=== PATIENT | male | born 1970 | race Hispanic/Latino ===

== ENCOUNTER 2018-09-22 21:57 | Emergency (ER) | payer BC, OTHER, SELFPAY ==
--- OUTSIDE RECORDS SUMMARY | 2018-09-22 22:00 | XMS REPORT | Continuity of Care Document ---
:1970 Author Organization Interface Problems Problem Status Onset Classification Date Comments Source Date Reported HEARING LOSS Active 09/26/[address] Dizziness and 08/22/19 11/24/2017 [facility] giddiness 18 [facility] VESTIBULAR Active 03/30/[address] HEAR LOSS Active 12/31/[address] Muscle weakness 11/24/2017 Other 11/24/2017 [facility] abnormalities of [facility] gait and mobility [facility] [place] HTN (<span Active Problem 11/24/2017 [facility] ID="[id number]" Medical >Confirmed</span> [place], ) [facility] Sensorineural Active Problem 11/24/2017 [facility] hearing loss [facility], Medications Medication Details Route Status Patient Ordering Order Source Instructions Provider Date sugammadex 500 mg, 5 mL, Inactive [facility] Route: IV, Drug 2017 Medical form: Renu AGUIRRE ONCE, Start date: 10/19/17 14:20:00 CDT, Stop date: 10/19/17 14:20:00 CDTNotes: (Same as: Bridion) Oxycodone 5 mg, 1 tab, No Longer [facility] Route: PO, Drug Active 2017 Medical form: TAB, Q4H, [place] Dosing Weight 84.091, kg, PRN Pain Score 4-6, Start date: 10/19/17 10:38:00 CDT, Duration: 30 day, Stop date: 11/18/17 10:37:00 CDTNotes: (Same as: Roxicodone) Ondansetron 4 mg, Route: Inactive [facility] IVP, ONCE, 2018 Medical Dosing Weight Center 84.091, kg, PRN Nausea & Vomiting, Start date: 10/19/17 10:38:00 CDT Hydromorphone 0.5 mg, Route: Inactive [facility] IVP, Q5Min, 2018 Medical Dosing Weight Center 84.091, kg, PRN Pain Score 7-10, Start date: 10/19/17 10:38:00 CDT, Duration: 4 doses or times, Stop date: Limited # of times Hydralazine 10 mg, 0.5 mL, No Longer [facility] Route: IVP, Active 2017 Medical Drug form: INJ, Center Q20Min, Dosing Weight 84.091, kg, PRN Elevated BP, Start date: 10/19/17 10:38:00 CDT, Duration: 2 doses or times, Stop date: 10/20/17 0:00:00 CDTNotes: (Same as: Apresoline) Push over 5 minutes Labetalol 10 mg, 2 mL, No Longer [facility] Route: IVP, Active 2017 Medical Drug form: INJ, Center Q5Min, Dosing Weight 84.091, kg, PRN Elevated BP, Start date: 10/19/17 10:38:00 CDT, Duration: 5 doses or times, Stop date: 10/20/17 0:00:00 CDT Promethazine 6.25 mg, 0.25 No Longer [facility] mL, Route: Active 2017 Medical IVPB, Drug Center form: INJ, ONCE, Dosing Weight 84.091, kg, PRN Nausea & Vomiting, Start date: 10/19/17 10:38:00 CDTNotes: Do not give IV push. (Same as: Phenergan) Flumazenil 0.2 mg, 2 mL, No Longer [facility] Route: IVP, Active 2017 Medical Drug form: INJ, Center PRN, Dosing Weight 84.091, kg, PRN Benzodiazepine Reversal, Initial dose, Start date: 10/19/17 10:38:00 CDT, Duration: 30 day, Stop date: 11/18/17 10:37:00 CDTNotes: (Same as: Romazicon) Naloxone 0.4 mg, 1 mL, No Longer [facility] Route: IVP, Active 2017 Medical Drug form: INJ, Center Q2MIN, Dosing Weight 84.091, kg, PRN Narcotic Reversal, Start date: 10/19/17 10:38:00 CDT, Duration: 8 doses or times, Stop date: 10/20/17 0:00:00 CDTNotes: Same as Narcan sugammadex (ANES) Route: IV, Drug Inactive [facility] form: SOLN, 2017 Medical ONCE, Stop Center date: 10/19/17 10:12:00 CDT phenylephrine Route: IV, Drug Inactive [facility] (ANES) form: INJ, 2017 Medical ONCE, Stop Center date: 10/19/17 8:36:00 CDT dexamethasone Route: IV, Drug Inactive [facility] (ANES) form: INJ, 2017 Medical ONCE, Stop Center date: 10/19/17 8:36:00 CDT ondansetron (ANES) Route: IV, Drug Inactive [facility] form: INJ, 2017 Medical ONCE, Stop Center date: 10/19/17 8:36:00 CDT fentaNYL (ANES) Route: IV, Drug Inactive [facility] form: INJ, 2017 Medical ONCE, Stop Center date: 10/19/17 8:21:00 CDT rocuronium (ANES) Route: IV, Drug Inactive [facility] form: INJ, 2017 Medical ONCE, Stop Center date: 10/19/17 8:21:00 CDT propofol (ANES) Route: IV, Drug Inactive [facility] form: INJ, 2017 Medical ONCE, Stop Center date: 10/19/17 8:21:00 CDT midazolam (ANES) Route: IV, Drug Inactive [facility] form: SOLN2017 Medical ONCE, Stop Center date: 10/19/17 8:21:00 CDT acetaminophen Route: IV, Drug Inactive [facility] (ANES) form: INJ, 2017 Medical ONCE, Stop Center date: 10/19/17 8:21:00 CDT Lactated Ringers Route: IV, Inactive [facility] Injection IV (ANES) Total Volume: 2017 Medical 1000 mL 1,000, Start Center date: 10/19/17 7:26:00 CDT, Stop date: 10/19/17 8:26:00 CDT Fenofibrate 54 MG 54 mg=1 tab, Active [facility] Oral Tablet PO, Daily, 0 2017 Medical Refill(s) Center Trazodone 50 mg=1 tab, Active [place] Hydrochloride 50 MG PO, TID, 0 2017 [facility] Oral Tablet Refill(s) Center Ketorolac 15 mg, Route: Inactive [facility] IV, ONCE, 2016 Medical Dosing Weight Center 86.818, kg, Start date: 03/30/17 11:26:00 CDT, Stop date: 03/30/17 11:26:00 CDT ondansetron (ANES) Route: IV, Drug Inactive [facility] form: INJ, 2016 Medical ONCE, Stop Center date: 03/30/17 9:50:00 CDT fentaNYL (ANES) Route: IV, Drug Inactive [facility] form: INJ, 2016 Medical ONCE, Stop Center date: 03/30/17 8:55:00 CDT succinylcholine Route: IV, Drug Inactive [facility] (ANES) form: INJ, 2016 Medical ONCE, Stop Center date: 03/30/17 8:55:00 CDT propofol (ANES) Route: IV, Drug Inactive [facility] form: INJ, 2016 Medical ONCE, Stop Center date: 03/30/17 8:55:00 CDT lidocaine (ANES) Route: IV, Drug Inactive [facility] form: INJ, 2016 Medical ONCE, Stop Center date: 03/30/17 8:55:00 CDT dexamethasone Route: IV, Drug Inactive [facility] (ANES) form: INJ, 2016 Medical ONCE, Stop Center date: 03/30/17 8:50:00 CDT ceFAZolin (ANES) Route: IV, Drug Inactive [facility] form: INJ, 2016 Medical ONCE, Stop Center date: 03/30/17 8:45:00 CDT Naloxone 0.4 mg, 1 mL, No Longer [place] Route: IVP, Active 2016 Medical Drug form: INJ, Center Q2MIN, Dosing Weight 86.818, kg, PRN Narcotic Reversal, Start date: 03/30/17 8:39:00 CDT, Duration: 8 doses or times, Stop date: Limited # of timesNotes: Same as Narcan Flumazenil 0.2 mg, 2 mL, No Longer [facility] Route: IVP, Active 2016 Medical Drug form: INJ, Center PRN, Dosing Weight 86.818, kg, PRN Benzodiazepine Reversal, Initial dose, Start date: 03/30/17 8:39:00 CDT, Duration: 1 day, Stop date: 03/31/17 8:38:00 CDTNotes: (Same as: Romazicon) Hydromorphone 0.5 mg, Route: Inactive [facility] IVP, Q5Min, 2016 Medical Dosing Weight Center 86.818, kg, PRN Pain Score 7-10, Start date: 03/30/17 8:39:00 CDT, Duration: 4 doses or times, Stop date: Limited # of times Ondansetron 4 mg, Route: Inactive [facility] IVP, ONCE, 2016 Medical Dosing Weight Center 86.818, kg, PRN Nausea & Vomiting, Start date: 03/30/17 8:39:00 CDT Promethazine 6.25 mg, 0.25 No Longer [facility] mL, Route: Active 2016 Medical IVPB, Drug Center form: INJ, ONCE, Dosing Weight 86.818, kg, PRN Nausea & Vomiting, Start date: 03/30/17 8:39:00 CDTNotes: Do not give IV push. (Same as: Phenergan) Oxycodone 5 mg, 1 tab, No Longer [facility] Route: PO, Drug Active 2016 Medical form: TAB, Q4H, Center Dosing Weight 86.818, kg, PRN Pain Score 4-6, Start date: 03/30/17 8:39:00 CDT, Duration: 30 day, Stop date: 04/29/17 8:38:00 CDTNotes: (Same as: Roxicodone) midazolam (ANES) Route: IV, Drug Inactive [facility] form: TIMOTHY 2016 Medical ONCE, Stop Center date: 03/30/17 8:15:00 CDT Drug Only (ANES) + Route: IV, Drug Inactive [facility] dexmedetomidine form: TIMOTHY 2016 Medical (ANES) (ANES) Start date: Center 03/30/17 8:05:00 CDT, Stop date: 03/30/17 9:05:00 CDT Drug Only (ANES) + Route: IV, Drug Inactive [facility] SUFentanil (ANES) form: SOLN, 2017 Medical (ANES) Start date: Center 03/30/17 8:05:00 CDT, Stop date: 03/30/17 9:05:00 CDT propofol (ANES) Route: IV, Drug Inactive [facility] (ANES) form: INJ, 2017 Medical Start date: Center 03/30/17 8:05:00 CDT, Stop date: 03/30/17 9:05:00 CDT LR 1000 mL INJ Route: IV, Inactive [facility] (ANES) Total Volume: 2017 Medical 1,000, Start Center date: 03/30/17 7:38:00 CDT, Stop date: 03/30/17 8:38:00 CDT ceFAZolin 2 gm, 100 mL, No Longer [place] Route: IVPB, Active 2016 Medical Drug form: INJ, Center PRE OP, Start date: 03/29/17 23:00:00 CDT, Duration: 1 day, Stop date: 03/30/17 22:59:00 CDT, ABX Indication: Surgical ProphylaxisNote s: Same as: Ancef promethazine 50 mg 50 mg=1 tab, Active [place] oral tablet PO, Q6H, PRN 2017 Medical Nausea & Center Vomiting, # 40 tab, 0 Refill(s) Hydrochlorothiazide 1 tab, PO, Active [facility] 25 MG / Losartan Daily, # 30 2017 Medical Potassium 100 MG tab, 0 Center Oral Tablet Refill(s) Promethazine DM 5 mL, PO, Q6H, Active [facility] oral syrup PRN for cough, 2017 Medical # 120 mL, 0 Center Refill(s) metoprolol tartrate 25 mg=1 tab, Active [facility] 25 mg oral tablet PO, BID, # 180 2017 Medical tab, 0 Center Refill(s) Allergies, Adverse Reactions, Alerts Substance Category Reaction Severity Reaction Status Date Comments Source type Reported Immunizations Immunization Date Given Site Status Last Updated Comments Source Results Order Name Results Value Reference Date Interpretation Comments Source Range CHEM PANEL eGFR 60 10/16/ Result Comment: The eGFR is calculated using the CKD-EPI formula. In most young, healthy individuals the eGFR will be >90 mL/ min/1.73m2. The eGFR declines with age. An eGFR of 60-89 may be normal in [facility] /min2017 some populations, particularly the elderly, for whom the CKD-EPI formula has not been extensively validated. Use of the eGFR is not recommended in the following populations: [facility] 1.73m2 [place] Individuals with unstable creatinine concentrations, including patients and those with serious co-morbid conditions. Patients with extremes in muscle mass or diet. The data above are obtained from the National Kidney Disease Education Program (NKDEP) which additionally recommends that when the eGFR is used in patients with extremes of body mass index for purposes of drug dosing, the eGFR should be multiplied by the estimated BMI. CHEM PANEL AGAP 13.2 10.0 - 20.0 [place] meq/L 2017 [facility] CHEM PANEL CO2 28 24 - 32 [place] meq/L 2017 [facility] CHEM PANEL Calcium Lvl 9.0 8.5 - 10.5 [place] mg/dL 2017 [facility] CHEM PANEL Chloride Lvl 105 95 - 109 [place] meq/L 2017 [facility] CHEM PANEL Potassium 4.2 3.5 - 5.1 [facility] Lvl meq/L 2017 [facility] CHEM PANEL Sodium Lvl 142 135 - 145 [place] meq/L 2017 [facility] CHEM PANEL Creatinine 1.38 0.50 - 1.40 [place] Lvl mg/dL [address] [place] [address] CHEM PANEL Glucose Lvl 83 70 - 99 [place] mg/dL 2017 [facility] CHEM PANEL BUN 30 7 - 22 [place] mg/dL [address] [place] [address] CHEM PANEL eGFR 49 03/26/ Result Comment: The eGFR is calculated using the CKD-EPI formula. In most young, healthy individuals the eGFR will be >90 mL/ min/1.73m2. The eGFR declines with age. An eGFR of 60-89 may be normal in [facility] /min2016 some populations, particularly the elderly, for whom the CKD-EPI formula has not been extensively validated. Use of the eGFR is not recommended in the following populations: [facility] 1.73m2 [place] Individuals with unstable creatinine concentrations, including patients and those with serious co-morbid conditions. Patients with extremes in muscle mass or diet. The data above are obtained from the National Kidney Disease Education Program (NKDEP) which additionally recommends that when the eGFR is used in patients with extremes of body mass index for purposes of drug dosing, the eGFR should be multiplied by the estimated BMI. CHEM PANEL Potassium 4.2 3.5 - 5.1 [place] Lvl meq/L [address] [place] [address] CHEM PANEL Calcium Lvl 9.3 8.5 - 10.5 [place] mg/dL [address] [place] [address] CHEM PANEL CO2 30 24 - 32 [place] meq/L [address] [place] [address] CHEM PANEL Chloride Lvl 103 95 - 109 [place] meq/L [address] [place] [address] CHEM PANEL BUN 37 7 - 22 [place] mg/dL [address] [place] [address] CHEM PANEL Sodium Lvl 140 135 - 145 [place] meq/L [address] [place] [address] CHEM PANEL Glucose Lvl 78 70 - 99 [place] mg/dL [address] [place] [address] CHEM PANEL Creatinine 1.63 0.50 - 1.40 [place] Lvl mg/dL [address] [place] [address] CHEM PANEL AGAP 11.2 10.0 - 20.0 [place] meq/L [address] [place] [address] SPECIAL Hgb A1C 5.8 % <=5.6 % [facility] CHEMISTRY [address] [place] [address] Vital Signs Vital Sign Value Date Comments Source Respitory Rate 12 10/19/2017 [facility] [place] Systolic (mm Hg) 104 10/19/2017 [facility] [place] Diastolic (mm Hg) 69 10/19/2017 [facility] [place] Respitory Rate 12 10/19/2017 [facility] [place] Systolic (mm Hg) 101 10/19/2017 [facility] [place] Diastolic (mm Hg) 59 10/19/2017 [facility] [place] Systolic (mm Hg) 114 10/19/2017 [facility] [place] Diastolic (mm Hg) 59 10/19/2017 [facility] [place] Respitory Rate 11 10/19/2017 [facility] [place] Heart Rate 63 10/19/2017 [facility] [place] Height 175.26 cm 10/19/2017 [facility] [place] BMI Calculated 27.38 10/19/2017 [facility] [place] Weight 84.091 10/19/2017 [facility] [place] Height 175.26 cm 10/16/2017 [facility] [place] BMI Calculated 27.38 10/16/2017 [facility] [place] Weight 84.091 10/16/2017 [facility] [place] Respitory Rate 16 03/30/2017 [facility] [place] Heart Rate 63 03/30/2017 [facility] [place] Systolic (mm Hg) 107 03/30/2017 [facility] [place] Diastolic (mm Hg) 62 03/30/2017 [facility] [place] Respitory Rate 12 03/30/2017 [facility] [place] Systolic (mm Hg) 97 03/30/2017 [facility] [place] Diastolic (mm Hg) 54 03/30/2017 [facility] [place] Systolic (mm Hg) 101 03/30/2017 [facility] [place] Diastolic (mm Hg) 58 03/30/2017 [facility] [place] Respitory Rate 13 03/30/2017 [facility] [place] Heart Rate 69 03/30/2017 [facility] [place] BMI Calculated 28.26 03/30/2017 [facility] [place] Weight 86.818 03/30/2017 [facility] [place] Height 175.26 cm 03/30/2017 [facility] [place] Weight 86.364 03/26/2017 [facility] [place] Height 175.26 cm 03/26/2017 [facility] [place] BMI Calculated 28.12 03/26/2017 [facility] [place] Encounters Location Location Encounter Encounter Reason Attending ADM DC Status Source Details Type Number For Provider Date Date Visit [id number] Fatou-Yeанна 03/30 03/31 [facility] OP Therapy [id number] Fatou-Yen 07/20 08/19 [facility] [id number] Fatou-Yen 10/19 10/20 [facility] Procedures Procedure Code Date Perfomer Comments Source Implantation [id number] [facility] Implantation [id number] [facility] [place]
--- OUTSIDE RECORDS SUMMARY | 2018-09-22 22:01 | XMS REPORT | Summary of Care ---
:1970 Author Organization [facility] Address [address], [place] [address]- Encounter HQ Lonantr_elsy(FIN) [id number] Date(s): 03/30/17 - 03/30/[address] [address]- [place] Discharge Disposition: Home or Self Care Attending Physician: Lionel Madden MD Referring Physician: Lionel Madden MD Vital Signs Most recent to oldest 1 2 3 [Reference Range]: Height 175.26 cm 175.26 cm (03/30/17 5:54 AM) (03/26/17 2:15 PM) Blood Pressure [90-140/60-90 107/62 mmHg 97/54 mmHg 101/58 mmHg mmHg] (03/30/17 12:00 PM) (03/30/17 11:30 AM) (03/30/17 11:15 AM) Respiratory Rate [14-20 16 BRMIN 12 BRMIN 13 BRMIN BRMIN] (03/30/17 12:00 PM) *LOW* *LOW* (03/30/17 11:30 AM) (03/30/17 11:15 AM) Peripheral Pulse Rate 63 bpm 69 bpm [60-100 bpm] (03/30/17 12:00 PM) (03/30/17 5:54 AM) Weight 86.818 kg 86.364 kg (03/30/17 5:54 AM) (03/26/17 2:15 PM) Body Mass Index 28.26 m2 28.12 m2 (03/30/17 5:54 AM) (03/26/17 2:15 PM) Problem List Condition Effective Dates Status Health Status Informant HTN (hypertension)(Confirmed) Active Sensorineural hearing loss(Confirmed) Active Allergies, Adverse Reactions, Alerts Substance Reaction Severity Status NKDA Active Medications ANES flumazenil 0.2 mg, 2 mL, Route: IVP, Drug form: INJ, PRN, Dosing Weight 86.818, kg, PRN Benzodiazepine Reversal, Initial dose, Start date: 03/30/17 8:39:00 CDT, Duration: 1 day, Stop date: 03/31/17 8:38:00 CDT Notes: (Same as: Romazicon) Start Date: 03/30/17 Stop Date: 03/31/17 Status: DiscontinuedANES HYDROmorphone 0.5 mg, Route: IVP, Q5Min, Dosing Weight 86.818, kg, PRN Pain Score 7-10, Start date: 03/30/17 8:39:00 CDT, Duration: 4 doses or times, Stop date: Limited # of times Start Date: 03/30/17 Stop Date: 03/30/17 Status: CompletedANES naloxone 0.4 mg, 1 mL, Route: IVP, Drug form: INJ, Q2MIN, Dosing Weight 86.818, kg, PRN Narcotic Reversal, Start date: 03/30/17 8:39:00 CDT, Duration: 8 doses or times , Stop date: Limited # of times Notes: Same as Narcan Start Date: 03/30/17 Stop Date: 03/31/17 Status: DiscontinuedANES ondansetron 4 mg, Route: IVP, ONCE, Dosing Weight 86.818, kg, PRN Nausea & Vomiting, Start date: 03/30/17 8:39:00 CDT Start Date: 03/30/17 Stop Date: 03/30/17 Status: CompletedANES oxyCODONE 5 mg, 1 tab, Route: PO, Drug form: TAB, Q4H, Dosing Weight 86.818, kg, PRN Pain Score 4-6, Start date: 03/30/17 8:39:00 CDT, Duration: 30 day, Stop date: 8:38:00 CDT Notes: (Same as: Roxicodone) Start Date: 03/30/17 Stop Date: 03/31/17 Status: DiscontinuedANES promethazine 6.25 mg, 0.25 mL, Route: IVPB, Drug form: INJ, ONCE, Dosing Weight 86.818, kg, PRN Nausea & Vomiting, Start date: 03/30/17 8:39:00 CDT Notes: Do not give IV push. (Same as: Phenergan) Start Date: 03/30/17 Stop Date: 03/31/17 Status: DiscontinuedceFAZolin 2 gm, 100 mL, Route: IVPB, Drug form: INJ, PRE OP, Start date: 03/29/17 23:00: 00 CDT, Duration: 1 day, Stop date: 03/30/17 22:59:00 CDT, ABX Indication: Surgical Prophylaxis Notes: Same as: Ancef Start Date: 03/29/17 Stop Date: 03/31/17 Status: DiscontinuedceFAZolin (ANES) Route: IV, Drug form: INJ, ONCE, Stop date: 03/30/17 8:45:00 CDT Start Date: 03/30/17 Stop Date: 03/30/17 Status: Completeddexamethasone (ANES) Route: IV, Drug form: INJ, ONCE, Stop date: 03/30/17 8:50:00 CDT Start Date: 03/30/17 Stop Date: 03/30/17 Status: CompletedDrug Only (ANES) + dexmedetomidine (ANES) (ANES) Route: IV, Drug form: SOLN, Start date: 03/30/17 8:05:00 CDT, Stop date: 9:05:00 CDT Start Date: 03/30/17 Stop Date: 03/30/17 Status: CompletedDrug Only (ANES) + SUFentanil (ANES) (ANES) Route: IV, Drug form: SOLN, Start date: 03/30/17 8:05:00 CDT, Stop date: 9:05:00 CDT Start Date: 03/30/17 Stop Date: 03/30/17 Status: CompletedfentaNYL (ANES) Route: IV, Drug form: INJ, ONCE, Stop date: 03/30/17 8:55:00 CDT Start Date: 03/30/17 Stop Date: 03/30/17 Status: Completedhydrochlorothiazide-losartan 25 mg-100 mg oral tablet 1 tab, PO, Daily, # 30 tab, 0 Refill(s) Start Date: 03/23/17 Status: OrderedketOROLAC 15 mg, Route: IV, ONCE, Dosing Weight 86.818, kg, Start date: 03/30/17 11:26:00 CDT, Stop date: 03/30/17 11:26:00 CDT Start Date: 03/30/17 Stop Date: 03/30/17 Status: Orderedlidocaine (ANES) Route: IV, Drug form: INJ, ONCE, Stop date: 03/30/17 8:55:00 CDT Start Date: 03/30/17 Stop Date: 03/30/17 Status: CompletedLR 1000 mL INJ (ANES) Route: IV, Total Volume: 1,000, Start date: 03/30/17 7:38:00 CDT, Stop date: 8:38:00 CDT Start Date: 03/30/17 Stop Date: 03/30/17 Status: Completedmetoprolol tartrate 25 mg oral tablet 25 mg=1 tab, PO, BID, # 180 tab, 0 Refill(s) Start Date: 03/23/17 Status: Orderedmidazolam (ANES) Route: IV, Drug form: SOLN, ONCE, Stop date: 03/30/17 8:15:00 CDT Start Date: 03/30/17 Stop Date: 03/30/17 Status: Completedondansetron (ANES) Route: IV, Drug form: INJ, ONCE, Stop date: 03/30/17 9:50:00 CDT Start Date: 03/30/17 Stop Date: 03/30/17 Status: Completedpromethazine 50 mg oral tablet 50 mg=1 tab, PO, Q6H, PRN Nausea & Vomiting, # 40 tab, 0 Refill(s) Start Date: 03/26/17 Stop Date: 04/05/17 Status: OrderedPromethazine DM oral syrup 5 mL, PO, Q6H, PRN for cough, # 120 mL, 0 Refill(s) Start Date: 03/23/17 Stop Date: 03/29/17 Status: Orderedpropofol (ANES) Route: IV, Drug form: INJ, ONCE, Stop date: 03/30/17 8:55:00 CDT Start Date: 03/30/17 Stop Date: 03/30/17 Status: Completedpropofol (ANES) (ANES) Route: IV, Drug form: INJ, Start date: 03/30/17 8:05:00 CDT, Stop date: 9:05:00 CDT Start Date: 03/30/17 Stop Date: 03/30/17 Status: Completedsuccinylcholine (ANES) Route: IV, Drug form: INJ, ONCE, Stop date: 03/30/17 8:55:00 CDT Start Date: 03/30/17 Stop Date: 03/30/17 Status: Completed Results ELECTROLYTES Most recent to oldest [Reference Range]: 1 Sodium Lvl [135-145 mEq/L] 140 mEq/L (03/26/17 12:35 PM) Potassium Lvl [3.5-5.1 mEq/L] 4.2 mEq/L (03/26/17 12:35 PM) Chloride Lvl [95-109 mEq/L] 103 mEq/L (03/26/17 12:35 PM) CO2 [24-32 mEq/L] 30 mEq/L (03/26/17 12:35 PM) AGAP [10.0-20.0 mEq/L] 11.2 mEq/L (03/26/17 12:35 PM) CHEM PANEL Most recent to oldest [Reference Range]: 1 Creatinine Lvl [0.50-1.40 mg/dL] 1.63 mg/dL *HI* (03/26/17 12:35 PM) eGFR 49 mL/min/1.73m2 1 *NA* (03/26/17 12:35 PM) BUN [7-22 mg/dL] 37 mg/dL *HI* (03/26/17 12:35 PM) Glucose Lvl [70-99 mg/dL] 78 mg/dL (03/26/17 12:35 PM) Calcium Lvl [8.5-10.5 mg/dL] 9.3 mg/dL (03/26/17 12:35 PM) 1Result Comment: The eGFR is calculated using the CKD-EPI formula. In most young , healthy individualsthe eGFR will be >90 mL/min/1.73m2. The eGFR declines with age. An eGFR of 60-89 may be normal in some populations, particularly the elderly, for whom the CKD-EPI formula has not been extensively validated. Use of the eGFR is not recommended in the following populations: Individuals with unstable creatinine concentrations, including patients and those with serious co-morbid conditions. Patients with extremes in muscle mass or diet. The data above are obtained from the National Kidney Disease Education Program ( NKDEP) which additionally recommends that when the eGFR is used in patients with extremes of body mass index for purposesof drug dosing, the eGFR should be multiplied by the estimated BMI.SPECIAL CHEMISTRY Most recent to oldest [Reference Range]: 1 Hgb A1C [<=5.6 %] 5.8 % *HI* (03/26/17 12:35 PM) Immunizations No data available for this section Procedures No data available for this section Social History Social History Type Response Smoking Status Never smoker; Exposure to Tobacco Smoke None; Cigarette Smoking Last 365 Days No; Reg Smoking Cessation Counseling No Assessment and Plan No data available for this section
--- OUTSIDE RECORDS SUMMARY | 2018-09-22 22:01 | XMS REPORT | Summary of Care ---
:[address] [facility] Address [address], [place] [address]- Encounter HQ Ana_elsy(FIN) [id number] Date(s): 10/19/17 - 10/19/[address] [address]- [place] Discharge Disposition: Home or Self Care Attending Physician: Lionel Madden MD Referring Physician: Lionel Madden MD Vital Signs Most recent to oldest 1 2 3 [Reference Range]: Height 175.26 cm 175.26 cm (10/19/17 6:38 AM) (10/16/17 3:13 PM) Blood Pressure [90-140/60-90 104/69 mmHg 101/59 mmHg 114/59 mmHg mmHg] (10/19/17 11:52 AM) (10/19/17 11:15 AM) (10/19/17 11:00 AM) Respiratory Rate [14-20 12 BRMIN 12 BRMIN 11 BRMIN BRMIN] *LOW* *LOW* *LOW* (10/19/17 11:52 AM) (10/19/17 11:15 AM) (10/19/17 11:00 AM) Peripheral Pulse Rate 63 bpm [60-100 bpm] (10/19/17 6:38 AM) Weight 84.091 kg 84.091 kg (10/19/17 6:38 AM) (10/16/17 3:13 PM) Body Mass Index 27.38 m2 27.38 m2 (10/19/17 6:38 AM) (10/16/17 3:13 PM) Problem List Condition Effective Dates Status Health Status Informant HTN (hypertension)(Confirmed) Active Sensorineural hearing loss(Confirmed) Active Allergies, Adverse Reactions, Alerts Substance Reaction Severity Status NKDA Active Medications acetaminophen (ANES) Route: IV, Drug form: INJ, ONCE, Stop date: 10/19/17 8:21:00 CDT Start Date: 10/19/17 Stop Date: 10/19/17 Status: CompletedANES flumazenil 0.2 mg, 2 mL, Route: IVP, Drug form: INJ, PRN, Dosing Weight 84.091, kg, PRN Benzodiazepine Reversal, Initial dose, Start date: 10/19/17 10:38:00 CDT, Duration: 30 day, Stop date: 11/18/17 10:37:00 CDT Notes: (Same as: Romazicon) Start Date: 10/19/17 Stop Date: 10/20/17 Status: DiscontinuedANES hydrALAZINE 10 mg, 0.5 mL, Route: IVP, Drug form: INJ, Q20Min, Dosing Weight 84.091, kg, PRN Elevated BP, Start date: 10/19/17 10:38:00 CDT, Duration: 2 doses or times, Stop date: 10/20/17 0:00:00 CDT Notes: (Same as: Apresoline)Push over 5 minutes Start Date: 10/19/17 Stop Date: 10/20/17 Status: CompletedANES HYDROmorphone 0.5 mg, Route: IVP, Q5Min, Dosing Weight 84.091, kg, PRN Pain Score 7-10, Start date: 10/19/17 10:38:00 CDT, Duration: 4 doses or times, Stop date: Limited # of times Start Date: 10/19/17 Stop Date: 10/19/17 Status: CompletedANES labetalol 10 mg, 2 mL, Route: IVP, Drug form: INJ, Q5Min, Dosing Weight 84.091, kg, PRN Elevated BP, Start date: 10/19/17 10:38:00 CDT, Duration: 5 doses or times, Stop date: 10/20/17 0:00:00 CDT Start Date: 10/19/17 Stop Date: 10/20/17 Status: CompletedANES naloxone 0.4 mg, 1 mL, Route: IVP, Drug form: INJ, Q2MIN, Dosing Weight 84.091, kg, PRN Narcotic Reversal, Start date: 10/19/17 10:38:00 CDT, Duration: 8 doses or times , Stop date: 10/20/17 0:00:00 CDT Notes: Same as Narcan Start Date: 10/19/17 Stop Date: 10/20/17 Status: CompletedANES ondansetron 4 mg, Route: IVP, ONCE, Dosing Weight 84.091, kg, PRN Nausea & Vomiting, Start date: 10/19/17 10:38:00 CDT Start Date: 10/19/17 Stop Date: 10/19/17 Status: CompletedANES oxyCODONE 5 mg, 1 tab, Route: PO, Drug form: TAB, Q4H, Dosing Weight 84.091, kg, PRN Pain Score 4-6, Start date: 10/19/17 10:38:00 CDT, Duration: 30 day, Stop date: 11/18 10:37:00 CDT Notes: (Same as: Roxicodone) Start Date: 10/19/17 Stop Date: 10/20/17 Status: DiscontinuedANES promethazine 6.25 mg, 0.25 mL, Route: IVPB, Drug form: INJ, ONCE, Dosing Weight 84.091, kg, PRN Nausea & Vomiting, Start date: 10/19/17 10:38:00 CDT Notes: Do not give IV push. (Same as: Phenergan) Start Date: 10/19/17 Stop Date: 10/20/17 Status: Discontinueddexamethasone (ANES) Route: IV, Drug form: INJ, ONCE, Stop date: 10/19/17 8:36:00 CDT Start Date: 10/19/17 Stop Date: 10/19/17 Status: Completedfenofibrate 54 mg oral tablet 54 mg=1 tab, PO, Daily, 0 Refill(s) Start Date: 10/16/17 Status: OrderedfentaNYL (ANES) Route: IV, Drug form: INJ, ONCE, Stop date: 10/19/17 8:21:00 CDT Start Date: 10/19/17 Stop Date: 10/19/17 Status: CompletedLactated Ringers Injection IV (ANES) 1000 mL Route: IV, Total Volume: 1,000, Start date: 10/19/17 7:26:00 CDT, Stop date: 8:26:00 CDT Start Date: 10/19/17 Stop Date: 10/19/17 Status: Completedmidazolam (ANES) Route: IV, Drug form: SOLN, ONCE, Stop date: 10/19/17 8:21:00 CDT Start Date: 10/19/17 Stop Date: 10/19/17 Status: Completedondansetron (ANES) Route: IV, Drug form: INJ, ONCE, Stop date: 10/19/17 8:36:00 CDT Start Date: 10/19/17 Stop Date: 10/19/17 Status: Completedphenylephrine (ANES) Route: IV, Drug form: INJ, ONCE, Stop date: 10/19/17 8:36:00 CDT Start Date: 10/19/17 Stop Date: 10/19/17 Status: Completedpropofol (ANES) Route: IV, Drug form: INJ, ONCE, Stop date: 10/19/17 8:21:00 CDT Start Date: 10/19/17 Stop Date: 10/19/17 Status: Completedrocuronium (ANES) Route: IV, Drug form: INJ, ONCE, Stop date: 10/19/17 8:21:00 CDT Start Date: 10/19/17 Stop Date: 10/19/17 Status: Completedsugammadex 500 mg, 5 mL, Route: IV, Drug form: SOLN, ONCE, Start date: 10/19/17 14:20:00 CDT, Stop date: 10/19/17 14:20:00 CDT Notes: (Same as: Bridion) Start Date: 10/19/17 Stop Date: 10/19/17 Status: Orderedsugammadex (ANES) Route: IV, Drug form: SOLN, ONCE, Stop date: 10/19/17 10:12:00 CDT Start Date: 10/19/17 Stop Date: 10/19/17 Status: Completedtrazodone 50 mg oral tablet 50 mg=1 tab, PO, TID, 0 Refill(s) Start Date: 10/16/17 Status: Ordered Results ELECTROLYTES Most recent to oldest [Reference Range]: 1 Sodium Lvl [135-145 mEq/L] 142 mEq/L (10/16/17 9:10 AM) Potassium Lvl [3.5-5.1 mEq/L] 4.2 mEq/L (10/16/17 9:10 AM) Chloride Lvl [95-109 mEq/L] 105 mEq/L (10/16/17 9:10 AM) CO2 [24-32 mEq/L] 28 mEq/L (10/16/17 9:10 AM) AGAP [10.0-20.0 mEq/L] 13.2 mEq/L (10/16/17 9:10 AM) CHEM PANEL Most recent to oldest [Reference Range]: 1 Creatinine Lvl [0.50-1.40 mg/dL] 1.38 mg/dL (10/16/17 9:10 AM) eGFR 60 mL/min/1.73m2 1 *NA* (10/16/17 9:10 AM) BUN [7-22 mg/dL] 30 mg/dL *HI* (10/16/17 9:10 AM) Glucose Lvl [70-99 mg/dL] 83 mg/dL (10/16/17 9:10 AM) Calcium Lvl [8.5-10.5 mg/dL] 9.0 mg/dL (10/16/17 9:10 AM) 1Result Comment: The eGFR is calculated using the CKD-EPI formula. In most young , healthy individualsthe eGFR will be >90 mL/min/1.73m2. The eGFR declines with age. An eGFR of 60-89 may be normal insome populations, particularly the elderly, for whom the [...] should be multiplied by the estimated BMI. Immunizations No data available for this section Procedures Procedure Date Related Diagnosis Body Site Status Implantation Completed Social History Social History Type Response Alcohol Current, Frequency: 1-2 times per year. Smoking Status Never smoker; Exposure to Tobacco Smoke None; Cigarette Smoking Last 365 Days No; Reg Smoking Cessation Counseling No entered on: 10/19/17 Assessment and Plan No data available for this section
--- OUTSIDE RECORDS SUMMARY | 2018-09-22 22:01 | XMS REPORT | Summary of Care ---
:1970 Author Organization [facility] Address Unavailable , Encounter HQ Roque(FIN) [id number] Date(s): 07/20/17 - 08/18/17 [facility] Encounter Diagnosis Dizziness and giddiness (Final) - 08/22/17 Muscle weakness (generalized) (Final) - Other abnormalities of gait and mobility (Final) - Discharge Disposition: Home or Self Care Attending Physician: Lionel Madden MD Vital Signs No data available for this section Problem List Condition Effective Dates Status Health Status Informant HTN (hypertension)(Confirmed) Active Sensorineural hearing loss(Confirmed) Active Allergies, Adverse Reactions, Alerts Substance Reaction Severity Status NKDA Active Medications No data available for this section Results No data available for this section Immunizations No data available for this section [...]
[2018-09-22] MEDS ORDERED: DIPHENHYDRAMINE 25 MG TAB/CAP ONE (22:43)
--- NOTE | 2018-09-22 23:06 | EDPHYS ---
Physician Documentation [facility] Name: Fredy More Age: 48 yrs Sex: Male : 1970 Arrival Date: 09/22/2018 Time: 22:03 Bed 5 Private MD: ED Physician Saran Bray HPI: 09/22 23:01 This 48 yrs old Male presents to ER via Ambulatory with complaints of rn Dizziness, Headache, Eye Pain - itchy, Sore Throat. 23:01 The patient complains of pain to the top of head. The patient describes the headache as rn aching. 23:01 Onset: The symptoms/episode began/occurred 2 day(s) ago. Severity of symptoms: At its rn worst the pain was moderate, in the emergency department the pain has improved. The patient has experienced similar episodes in the past. The patient has not recently seen a physician. Reports hx of headaches but this one is not going away, assoc with itchy throat and mild cough, no rash to body, no swelling, no trouble swallowing. No focal neurological complaints otherwise. . Historical: - Allergies: 22:15 No Known Allergies; tl2 - Home Meds: 22:15 ipratropium-albuterol inhalation Inhl [Active]; losartan 100-25 mg Oral [Active]; tl2 Metoprolol Tartrate Oral [Active]; [place]-3 Oral [Active]; - PMHx: 22:15 Hypertension; tl2 - PSHx: 22:15 cochlear implant; tl2 - Immunization history:: Adult Immunizations up to date. - Social history:: Smoking status: Patient/guardian denies using tobacco. - Ebola Screening: : No symptoms or risks identified at this time. - Family history:: not pertinent. - Hospitalizations: : No recent hospitalization is reported. ROS: 23:01 Constitutional: Negative for fever, chills, and weight loss, Eyes: Negative for injury, rn pain, redness, and discharge, Neck: Negative for injury, pain, and swelling, Cardiovascular: Negative for chest pain, palpitations, and edema, Respiratory: + cough, neg for sob Abdomen/GI: Negative for abdominal pain, nausea, vomiting, diarrhea, and constipation, MS/Extremity: Negative for injury and deformity, Skin: Negative for injury, rash, and discoloration, Neuro: + headache, no focal weakness/numbness Exam: 23:01 Constitutional: This is a well developed, well nourished patient who is awake, alert, rn and in no acute distress. Head/Face: Normocephalic, atraumatic. Eyes: Pupils equal round and reactive to light, extra-ocular motions intact. Lids and lashes normal. Conjunctiva and sclera are non-icteric and not injected. Cornea within normal limits. Periorbital areas with no swelling, redness, or edema. ENT: MMM, no stridor, no oral swelling Neck: Trachea midline, no thyromegaly or masses palpated, and no cervical lymphadenopathy. Supple, full range of motion without nuchal rigidity, or vertebral point tenderness. No Meningismus. Skin: Warm, dry with normal turgor. Normal color with no rashes, no lesions, and no evidence of cellulitis. MS/ Extremity: Pulses equal, no cyanosis. Neurovascular intact. Full, normal range of motion. Equal circumference. Neuro: Awake and alert, GCS 15, oriented to person, place, time, and situation. Cranial nerves II-XII grossly intact. Motor strength 5/5 in all extremities. Sensory grossly intact. Cerebellar exam normal. Normal gait. Vital Signs: 22:15 BP 134 / 92; Pulse 74; Resp 18; Temp 97.8(O); Pulse Ox 95% on R/A; Weight 81.65 kg; tl2 Height 5 ft. 9 in. (175.26 cm); Pain 4/10; 22:15 Body Mass Index 26.58 (81.65 kg, 175.26 cm) tl2 Cordell Coma Score: 23:01 Eye Response: spontaneous(4). Verbal Response: oriented(5). Motor Response: obeys rn commands(6). Total: 15. MDM: 22:13 Patient medically screened. rn 23:01 Differential diagnosis: cluster headache, hypertensive headache, migraine, sinusitis, rn tension headache, vasomotor headache. Data reviewed: vital signs, nurses notes, lab test result(s), radiologic studies, CT scan, and as a result, I will discharge patient. Counseling: I had a detailed discussion with the patient and/or guardian regarding: the historical points, exam findings, and any diagnostic results supporting the discharge/admit diagnosis, lab results, radiology results, the need for outpatient follow up, to return to the emergency department if symptoms worsen or persist or if there are any questions or concerns that arise at home. Special discussion: I discussed with the patient/guardian in detail that at this point there is no indication for admission to the hospital. It is understood, however, that if the symptoms persist or worsen the patient needs to return immediately for re-evaluation. 09/22 22:18 Order name: Strep; Complete Time: 23:06 rn 09/22 22:18 Order name: Flu; Complete Time: 23: rn 09/22 22:18 Order name: CT Head Brain wo Cont rn 09/22 23:00 Order name: Throat Culture EDMS Administered Medications: 22:39 Drug: Benadryl 50 mg Route: PO; lp1 23:11 Follow up: Response: No adverse reaction; Medication administered at discharge. lp1 Disposition: 09/22/18 23:05 Discharged to Home. Impression: Headache. - Condition is Stable. - Discharge Instructions: Allergies, Adult, General Headache Without Cause. - Medication Reconciliation Form, Thank You Letter, Antibiotic Education, Prescription Opioid Use form. - Follow up: Private Physician; When: As needed; Reason: Recheck today's complaints, Re-evaluation by your physician. - Problem is new. - Symptoms have improved. Signatures: Dispatcher [employer] EDMS Saran Bray MD MD rn Pena, Laura, RN RN lp1 Bridgett Escoto RN RN tl2 Corrections: (The following items were deleted from the chart) 23:16 23:05 09/22/2018 23:05 Discharged to Home. Impression: Headache. Condition is Stable. lp1 Forms are Medication Reconciliation Form, Thank You Letter, Antibiotic Education, Prescription Opioid Use. Follow up: Private Physician; When: As needed; Reason: Recheck today's complaints, Re-evaluation by your physician. Problem is new. Symptoms have improved. rn
--- NOTE | 2018-09-22 23:06 | ER ---
Nurse's Notes [facility] Name: Fredy More Age: 48 yrs Sex: Male : 1970 Arrival Date: 09/22/2018 Time: 22:03 Bed 5 Private MD: Diagnosis: Headache Presentation: 09/22 22:13 Presenting complaint: Patient states: sore throat, itchy eyes, headache and cough since tl2 Thursday. Reports mild difficulty breathing. No distress noted in triage. Transition of care: patient was not received from another setting of care. Onset of symptoms was September 20, 2018. Risk Assessment: Do you want to hurt yourself or someone else? Patient reports no desire to harm self or others. Initial Sepsis Screen: Does the patient meet any 2 criteria? No. Patient's initial sepsis screen is negative. Does the patient have a suspected source of infection? No. Patient's initial sepsis screen is negative. Care prior to arrival: None. 22:13 Method Of Arrival: Ambulatory tl2 22:13 Acuity: ANG 4 tl2 Triage Assessment: 22:15 Headache History: Denies prior headaches. General: Appears in no apparent distress. tl2 Behavior is calm, cooperative, appropriate for age. Historical: - Allergies: 22:15 No Known Allergies; tl2 - Home Meds: 22:15 ipratropium-albuterol inhalation Inhl [Active]; losartan 100-25 mg Oral [Active]; tl2 Metoprolol Tartrate Oral [Active]; [place]-3 Oral [Active]; - PMHx: 22:15 Hypertension; tl2 - PSHx: 22:15 cochlear implant; tl2 - Immunization history:: Adult Immunizations up to date. - Social history:: Smoking status: Patient/guardian denies using tobacco. - Ebola Screening: : No symptoms or risks identified at this time. - Family history:: not pertinent. - Hospitalizations: : No recent hospitalization is reported. Screenin:16 Abuse screen: Denies threats or abuse. Nutritional screening: No deficits noted. tl2 Tuberculosis screening: No symptoms or risk factors identified. Fall Risk None identified. Assessment: 22:30 General: Appears in no apparent distress. Behavior is appropriate for age. Pain: Denies lp1 pain. Neuro: Level of Consciousness is awake, alert, obeys commands, Oriented to person, place, time, situation, Gait is steady. Cardiovascular: Patient's skin is warm and dry. Respiratory: Respiratory effort is even, unlabored, Respiratory pattern is regular. GI: No signs and/or symptoms were reported involving the gastrointestinal system. : No signs and/or symptoms were reported regarding the genitourinary system. EENT: Reports sore throat, itchy eyes. Derm: Skin is pink, warm \T\ dry. Musculoskeletal: No deficits noted. Vital Signs: 22:15 BP 134 / 92; Pulse 74; Resp 18; Temp 97.8(O); Pulse Ox 95% on R/A; Weight 81.65 kg; tl2 Height 5 ft. 9 in. (175.26 cm); Pain 4/10; 22:15 Body Mass Index 26.58 (81.65 kg, 175.26 cm) tl2 [place] Coma Score: 23:01 Eye Response: spontaneous(4). Verbal Response: oriented(5). Motor Response: obeys rn commands(6). Total: 15. ED Course: 22:03 Patient arrived in ED. am2 22:13 Saran Bray MD is Attending Physician. rn 22:14 Triage completed. tl2 22:15 Arm band placed on right wrist. tl2 22:16 Patient has correct armband on for positive identification. Bed in low position. Call tl2 light in reach. Side rails up X 1. 22:24 Dariana Schaeffer, RN is Primary Nurse. lp1 22:[address] nj 22:34 CT Head Brain wo Cont In Process Unspecified. EDMS 22:35 Flu and/or RSV swab sent to lab. Strep swab sent to lab. lp1 22:51 No provider procedures requiring assistance completed. Patient did not have IV access lp1 during this emergency room visit. Administered Medications: 22:39 Drug: Benadryl 50 mg Route: PO; lp1 23:11 Follow up: Response: No adverse reaction; Medication administered at discharge. lp1 Outcome: 23:05 Discharge ordered by . rn 23:16 Discharged to home ambulatory. lp1 23:16 Condition: good 23:16 Discharge instructions given to patient, Instructed on discharge instructions, follow up and referral plans. Demonstrated understanding of instructions, follow-up care. 23:16 Patient left the ED. lp1 Signatures: Dispatcher [employer] EDMS Saran Bray MD MD rn Maksim, Dariana RN RN lp1 Bridgett Escoto RN RN tl2 Dexter Teresa Amanda am2
[2018-09-22 23:21] VITALS: BP 134/92; TEMP 97.8; O2SAT 95
--- NOTE | 2018-09-23 12:27 | RAD REPORT ---
EXAM DESCRIPTION: Head Brain Wo Cont CLINICAL HISTORY: 48 years Male HEADACHE COMPARISON: None TECHNIQUE: Contiguous axial images of the brain were obtained without the administration of intraven ous contrast.This exam was performed according to our departmental dose-optimization program which in cludes use of Automated Exposure Control, adjustment of the mA and/or kV according to patient size an d/or use of iterative reconstruction technique. Findings: Limited evaluation due to streak artifact arising from right sided cochlear implant Brain: No acute intracranial hemorrhage. No acute territorial infarct. No extra-axial collection. No mass effect or herniation. Ventricles: Within normal limits in size. Globes and orbits: No acute abnormality. Bones: No acute osseous finding. Paranasal sinuses: Paranasal sinuses are clear. Mastoid air cells: Evidence of prior right mastoidectomy with cochlear implant placement. Distal tip cannot be well evaluated. Soft tissues: Within normal limits Supervisor [employer] view shows no additional significant finding IMPRESSION: Limited evaluation. No acute intracranial hemorrhage, herniation or hydrocephalus. Prior right mastoidectomy and cochlear implant placement. Electronically signed by: Gómez Nugent DO 09/22/2018 10:42 PM CDT Due to temporary technical issues with the PACS/Fluency reporting system, reports are being signed by the in house radiologist as a courtesy to ensure prompt reporting. The interpreting radiologist is f ully responsible for the content of the report.
== END 2018-09-22 23:16 | disposition home or self-care (01) ==
LOC: ER 21:57
DX: R51 Headache (principal); I10 Essential (primary) hypertension
CPT/HCPCS: 70450; 87070; 87081; 87804; 99284

== ENCOUNTER 2020-01-01 12:52 | Emergency (ER) | payer BC ==
--- OUTSIDE RECORDS SUMMARY | 2020-01-01 12:56 | XMS REPORT | Continuity of Care Document ---
:1970 Author Organization [employer] Care Team Providers Name Role Phone [employer] Unavailable Un available Problems Problem Status Onset Classification Date Comments Sourc e Date Reported HEARING LOSS Active 09/26/19 [place] [address] [place] [address] Center Dizziness and 08/22/19 11/24/2017 [facility] giddiness 18 [facility] VESTIBULAR Active 03/30/[address] [facility] [address] [place] [address] HEAR LOSS Active 12/31/[address] Muscle weakness 11/24/2017 [facility] (generalized) [facility] Other 11/24/2017 [facility] abnormalities of Estefania theast gait and mobility Ne dical [facility] 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, Medical systemic arterial Ce nter, (disorder) [facility] Medical [facility] Sensorineural Active Problem 11/24/2017 [place] hearing loss Medical (finding) [place] Medications Medication Details Route Status Patient Ordering Order Source Instructions Provider Date sugammadex Notes: Inactive [place] (Same as: 2017 [facility] [place]) [place] Oxycodone Notes: No Longer [place] (Same as: Active [address] [place] [address] Roxicodone [place] ) Ondansetron 4 mg, Inactive [place] Route: 2017 Medical IVP, ONCE, Center Dosing Weight 84.091, kg, PRN Nausea & Vomiting, Start date: 10/19/17 10:38:00 CDT Hydromorphone 0.5 mg, Inactive [facility] Route: 2017 Medical IVP, Center Q5Min, Dosing Weight 84.091, kg, PRN Pain Score 7-10, Start date: 10/19/17 10:38:00 CDT, Duration: 4 doses or times, Stop date: Limited # of times Hydralazine Notes: No Longer [place] (Same as: Active 2018 [facility] [place] ) Push over 5 minutes Labetalol 10 mg, 2 No Longer [place] mL, Route: Active 2017 [facility] IVP, Drug Center form: INJ, Q5Min, Dosing Weight 84.091, kg, PRN Elevated BP, Start date: 10/19/17 10:38:00 CDT, Duration: 5 doses or times, Stop date: 10/20/17 0:00:00 CDT Promethazine Notes: Do No Longer [place] not give Active 2017 Medical IV push. Center (Same as: Phenergan) Flumazenil Notes: No Longer [facility] (Same as: Active 2018 Medical Romazicon) Center Naloxone Notes: No Longer [facility] Same as Active 2018 [facility] Narcan Center sugammadex (ANES) Route: IV, Inactive [facility] Drug form: [address] [place], [place] [address], Stop date: 10/19/17 10:12:00 CDT phenylephrine (ANES) Route: IV, Inactive [facility] Drug form: 2017 Medical INJ, ONCE, Center Stop date: 10/19/17 8:36:00 CDT dexamethasone (ANES) Route: IV, Inactive [facility] Drug form: 2017 Medical INJ, ONCE, Center Stop date: 10/19/17 8:36:00 CDT ondansetron (ANES) Route: IV, Inactive [facility] Drug form: 2018 Medical INJ, ONCE, Center Stop date: 10/19/17 8:36:00 CDT fentaNYL (ANES) Route: IV, Inactive [facility] [place] Drug form: 2017 Medical INJ, ONCE, Center Stop date: 10/19/17 8:21:00 CDT rocuronium (ANES) Route: IV, Inactive [facility] Drug form: 2017 Medical INJ, ONCE, Center Stop date: 10/19/17 8:21:00 CDT propofol (ANES) Route: IV, Inactive [facility] [place] Drug form: 2018 Medical INJ, ONCE, Center Stop date: 10/19/17 8:21:00 CDT midazolam (ANES) Route: IV, Inactive [facility] Drug form: [address] [place] [place] [address], Stop date: 10/19/17 8:21:00 CDT acetaminophen (ANES) Route: IV, Inactive [facility] Drug form: 2018 Medical INJ, ONCE, Center Stop date: 10/19/17 8:21:00 CDT Lactated Ringers Route: IV, Inactive [facility] Injection IV (ANES) Total 2018 Medi frida 1000 mL Volume: Center 1,000, Start date: 10/19/17 7:26:00 CDT, Stop date: 10/19/17 8:26:00 CDT Fenofibrate 54 MG 54 mg = 1 Active [place] Oral Tablet tab, PO, 2018 Medical Daily, 0 Center Refill(s) Trazodone 50 mg = 1 Active [facility] Hydrochloride 50 MG tab, PO, 2018 Med ical Oral Tablet TID, 0 Center Refill(s) Ketorolac 15 mg, Inactive [facility] Route: IV, 2017 Medical ONCE, [place] Dosing Weight 86.818, kg, Start date: 03/30/17 11:26:00 CDT, Stop date: 03/30/17 11:26:00 CDT ondansetron (ANES) Route: IV, Inactive [facility] Drug form: 2016 Medical INJ, ONCE, Center Stop date: 03/30/17 9:50:00 CDT fentaNYL (ANES) Route: IV, Inactive [place] Drug form: 2016 Medical INJ, ONCE, Center Stop date: 03/30/17 8:55:00 CDT succinylcholine Route: IV, Inactive [place] (ANES) Drug form: 2016 Medical INJ, ONCE, Center Stop date: 03/30/17 8:55:00 CDT propofol (ANES) Route: IV, Inactive [place] Drug form: 2016 Medical INJ, ONCE, Center Stop date: 03/30/17 8:55:00 CDT lidocaine (ANES) Route: IV, Inactive [facility] Drug form: 2016 Medical INJ, ONCE, Center Stop date: 03/30/17 8:55:00 CDT dexamethasone (ANES) Route: IV, Inactive [facility] Drug form: 2016 Medical INJ, ONCE, Center Stop date: 03/30/17 8:50:00 CDT ceFAZolin (ANES) Route: IV, Inactive [place] Drug form: 2017 Medical INJ, ONCE, Center Stop date: 03/30/17 8:45:00 CDT Naloxone Notes: No Longer [place] Same as Active 2017 [facility] Narcan [place] Flumazenil Notes: No Longer [place] (Same as: Active 2017 [facility] Romazicon) Center Hydromorphone 0.5 mg, Inactive [facility] Route: 2017 Medical IVP, Center Q5Min, Dosing Weight 86.818, kg, PRN Pain Score 7-10, Start date: 03/30/17 8:39:00 CDT, Duration: 4 doses or times, Stop date: Limited # of times Ondansetron 4 mg, Inactive [place] Route: 2016 Medical IVP, ONCE, Center Dosing Weight 86.818, kg, PRN Nausea & Vomiting, Start date: 03/30/17 8:39:00 CDT Promethazine Notes: Do No Longer [place] not give Active 2017 [facility] IV push. Center (Same as: Phenergan) Oxycodone Notes: No Longer [facility] (Same as: Active 2017 [facility] Roxicodone Center ) midazolam (ANES) Route: IV, Inactive [facility] Drug form: 2017 Medical SOLN, [place] ONCE, Stop date: 03/30/17 8:15:00 CDT Drug Only (ANES) + Route: IV, Inactive [facility] dexmedetomidine Drug form: 2016 Medic al (ANES) [facility] Start date: 03/30/17 8:05:00 CDT, Stop date: 03/30/17 9:05:00 CDT Drug Only (ANES) + Route: IV, Inactive [facility] SUFentanil (ANES) Drug form: 2016 Med ical (ANES) [facility] Start date: 03/30/17 8:05:00 CDT, Stop date: 03/30/17 9:05:00 CDT propofol (ANES) Route: IV, Inactive [place] (ANES) Drug form: 2016 Medical INJ, Start Center date: 03/30/17 8:05:00 CDT, Stop date: 03/30/17 9:05:00 CDT LR 1000 mL INJ (ANES) Route: IV, Inactive [facility] Total 2017 Medical Volume: Center 1,000, Start date: 03/30/17 7:38:00 CDT, Stop date: 03/30/17 8:38:00 CDT ceFAZolin Notes: No Longer [facility] Same as: Active 2016 [facility] promethazine 50 mg 50 mg = 1 Active [facility] oral tablet tab, PO, 2017 Medical Q6H, PRN Center Nausea & Vomiting, # 40 tab, 0 Refill(s) Hydrochlorothiazide 1 tab, PO, Active [place] 25 MG / Losartan Daily, # 2017 Medica l Potassium 100 MG Oral 30 tab, 0 Center Tablet Refill(s) Promethazine DM oral 5 mL, PO, Active [place] syrup Q6H, PRN 2017 Medical for cough, Center # 120 mL, 0 Refill(s) metoprolol tartrate 25 mg = 1 Active [facility] 25 mg oral tablet tab, PO, 2017 Medic al BID, # 180 Center tab, 0 Refill(s) Allergies, Adverse Reactions, Alerts No Known Medication Allergies Immunizations No Data Provided for This Section Results Order Name Results Value Reference Date Interpretation Comments Estefania rce Range CHEM PANEL eGFR 60 [facility] 2017 Comment: The Medical eGFR is Center calculated using the CKD-EPI formula. In most young, healthy individuals the eGFR will be >90 mL/min/1.73m2. The eGFR declines with age. An eGFR of 60-89 may be normal in some populations, particularly the elderly, for whom the CKD-EPI formula has not been extensively validated. Use of the eGFR is not recommended in the following populations:<b r/>
Indivi duals with unstable creatinine concentrations , including patients and those with serious co-morbid conditions.

Patient s with extremes in muscle mass or diet.

The data above are obtained from the National Kidney Disease Education Program (NKDEP) which additionally recommends that when the eGFR is used in patients with extremes of body mass index for purposes of drug dosing, the eGFR should be multiplied by the estimated BMI. CHEM PANEL AGAP 13.2 10.0 - 20.0 2017 [facility] CHEM PANEL CO2 28 24 - 32 2017 [facility] CHEM PANEL Calcium Lvl 9.0 8.5 - 10.5 [place] 2017 [facility] CHEM PANEL Chloride Lvl 105 95 - 109 [place] 2017 [facility] CHEM PANEL Potassium 4.2 3.5 - 5.1 [facility] 2017 [facility] CHEM PANEL Sodium Lvl 142 135 - 145 2017 [facility] CHEM PANEL Creatinine 1.38 0.50 - 1.40 [place] [facility] 2017 [facility] CHEM PANEL Glucose Lvl 83 70 - 99 2017 [facility] CHEM PANEL BUN 30 7 - 22 [facility] 2017 [facility] CHEM PANEL eGFR 49 [facility] 2016 Comment: The Medical eGFR is Center calculated using the CKD-EPI formula. In most young, healthy individuals the eGFR will be >90 mL/min/1.73m2. The eGFR declines with age. An eGFR of 60-89 may be normal in some populations, particularly the elderly, for whom the CKD-EPI formula has not been extensively validated. Use of the eGFR is not recommended in the following populations:<b r/>
Indivi duals with unstable creatinine concentrations , including patients and those with serious co-morbid conditions.

Patient s with extremes in muscle mass or diet.

The data above are obtained from the National Kidney Disease Education Program (NKDEP) which additionally recommends that when the eGFR is used in patients with extremes of body mass index for purposes of drug dosing, the eGFR should be multiplied by the estimated BMI. CHEM PANEL Potassium 4.2 3.5 - 5.1 [facility] 2016 [facility] CHEM PANEL Calcium Lvl 9.3 8.5 - 10.5 [place] 2016 [facility] CHEM PANEL CO2 30 24 - 32 [facility] 2016 [facility] CHEM PANEL Chloride Lvl 103 95 - 109 [place] 2016 [facility] CHEM PANEL BUN 37 7 - 22 [facility] 2016 [facility] CHEM PANEL Sodium Lvl 140 135 - 145 [facility] 2017 [facility] CHEM PANEL Glucose Lvl 78 70 - [address] CHEM PANEL Creatinine 1.63 0.50 - 1.40 [facility] 2016 [facility] CHEM PANEL AGAP 11.2 10.0 - 20.[address] SPECIAL Hgb A1C 5.8 <=5.6 % [facility] CHEMISTRY [address] [place] [address] Pathology Reports No Data Provided for This Section Diagnostic Reports No Data Provided for This Section Consultation Notes No Data Provided for This Section Discharge Summaries No Data Provided for This Section History and Physicals No Data Provided for This Section Vital Signs Vital Sign Value Date Comments Source Respitory Rate 12 10/19/2017 [facility] Medi frida Center Systolic (mm Hg) 104 10/19/[address] [facility] dical Center Diastolic (mm Hg) 69 10/19/2017 [facility] Respitory Rate 12 10/19/2017 [facility] frida Center Systolic (mm Hg) 101 10/19/[address] [facility] dical Center Diastolic (mm Hg) 59 10/19/2017 [facility] edical Center Systolic (mm Hg) 114 10/19/[address] [facility] dical Center Diastolic (mm Hg) 59 10/19/2017 [facility] edical Center Respitory Rate 11 10/19/2017 [facility] frida Center Heart Rate 63 10/19[facility] Height 175.26 cm [facility]/19[facility] BMI Calculated 27.38 10/19/2017 [facility] frida Center Weight 84.091 10/19/2017 [facility] Height 175.26 cm 10/16/2017 [facility] BMI Calculated 27.38 10/16/2017 [facility] frida Center Weight 84.091 10/16/2017 [facility] Respitory Rate 16 03/30/2017 [facility] frida Center Heart Rate 63 03/30/2017 [facility] Systolic (mm Hg) 107 03/30/[address] [facility] dical Center Diastolic (mm Hg) 62 03/30/2017 [facility] edical Center Respitory Rate 12 03/30/2017 [facility] frida Center Systolic (mm Hg) 97 03/30/2017 [facility] Diastolic (mm Hg) 54 03/30/2017 [facility] Systolic (mm Hg) 101 03/30/2017 [facility] Diastolic (mm Hg) 58 03/30/2017 [facility] Respitory Rate 13 03/30/2017 [facility] Heart Rate 69 03/30/2017 [facility] BMI Calculated 28.26 03/30/2017 [facility] Weight 86.818 03/30/2017 [facility] Height 175.26 cm 03/30/2017 [facility] Weight 86.364 03/26/2017 [facility] Height 175.26 cm 03/26/2017 [facility] BMI Calculated 28.12 03/26/2017 [facility] Encounters Location Location Encounter Encounter Reason Attending ADM DC Stat us Source Details Type Number For Provider Date Date Visit [id number] Fatou-Yen 03/30 03/31 [facility] Surgery [facility] [id number] Fatou-Yen 07/20 08/19 [facility] Patients [facility] Day [id number] Fatou-Yen 10/19 10/20 [facility] Surgery [facility] Procedures Procedure Code Date Perfomer Comments Source Implantation [id number] [facility] Assessment and Plan No Data Provided for This Section Plan of Care No Data Provided for This Section Social History Social History Date Source Social History TypeResponse 10/16/2017 [facility] Alcohol Current, Frequency: 1-2 times per year. Smoking Status Never smoker; Exposure to Tobacco Smoke None; Cigarette Smoking Last 365 Days No; Reg Smoking Cessation Counseling No entered on: 10/19/17 Social History TypeResponse 10/16/2017 [facility] Alcohol [facility] Current, Frequency: 1-2 times per year. Smoking Status Never smoker; Exposure to Tobacco Smoke None; Cigarette Smoking Last 365 Days No; Reg Smoking Cessation Counseling No entered on: 10/19/17 Family History No Data Provided for This Section Advance Directives No Data Provided for This Section Functional Status No Data Provided for This Section
--- OUTSIDE RECORDS SUMMARY | 2020-01-01 12:57 | XMS REPORT | Continuity of Care Document ---
:1970 Author Organization [facility] t Address [address] [place] [place] [address] Care Team Providers Name Role Phone Sedrick Madden Attending Clinician Problems Condition Condition Condition Status Onset Resolution Last Treating Co mments Source Name Details Category Date Date Treatment Clinician Date HEARING Diagnosis Active 2017-10-19 Me moria LOSS - 05:47:00 l HEARING 00:00: [place] LOSS 00 Active 09/25/2017 [facility] VESTIBULAR Diagnosis Active 2017-07-20 Memoria - 13:30:00 l 08:00: Gomez VESTIBULAR 00 Active 03/30/2017 [facility] HEAR LOSS Diagnosis Active 2017-10-07 Memoria - 11:13:00 l HEAR 00:00: [place] LOSS 00 Active 12/30/2016 [facility] Muscle Problem 2017-11-24 Memor ia weakness 11:38:10 l (generaliz Muscle Herm colette ed) weakness (generaliz ed) 11/24/2017 [facility] Other Problem 2017-11-24 Memor ia abnormalit 11:38:10 l ies of Other [place] gait and abnormalit mobility ies of gait and mobility 11/24/2017 [facility] Hypertensi Problem Active 2017-11-24 M emoria ve 11:38:10 l disorder, Gomez systemic Hypertensi arterial ve (disorder) disorder, systemic arterial (disorder) Active Problem 11/24/2017 [facility] Sensorineu Problem Active 2017-11-24 M emoria ral 11:38:10 l hearing Gomez loss Sensorineu (finding) ral hearing loss (finding) Active Problem 11/24/2017 [facility] [place] Dizziness Problem 2018-0 2017-11-24 2017-11-24 Memoria and 2-17 11:38:10 11:38:10 l giddiness 06:01: [place] Dizziness 47 and giddiness 08/22/2017 11/24/2017 [facility] Allergies, Adverse Reactions, Alerts This patient has no known allergies or adverse reactions. Social History Social Habit Start Date Stop Date Quantity Comments Source Social History 2017-10-16 2017-10-16 [facility] 13:32:06 13:32:06 Medications Ordered Filled Start Stop Current Ordering Indication Dosage Frequency Signature Comments Components Source Medication Medication Date Date Medication? Clinician (SIG) Name Name sugammadex Yes Notes: Memor ia 4-16 (Same as: l 19:20: [place]) Oxycodone No Notes: Memori a 4-16 (Same as: l 15:38: Roxicodone ) Ondansetron No 4 mg, Memor ia 4-16 Route: l 15:38: IVP, ONCE, Dosing Weight 84.091, kg, PRN Nausea & Vomiting, Start date: 10/19/17 10:38:00 CDT Hydromorpho No 0.5 mg, Mem oria ne 4-16 Route: l 15:38: IVP, 00 Q5Min, Dosing Weight 84.091, kg, PRN Pain Score 7-10, Start date: 10/19/17 10:38:00 CDT, Duration: 4 doses or times, Stop date: Limited # of times Hydralazine No Notes: Lawson caroline 4-16 (Same as: l 15:38: Apresoline ) Push over 5 minutes Labetalol No 10 mg, 2 Lawson caroline 4-16 mL, Route: l 15:38: IVP, Drug form: INJ, Q5Min, Dosing Weight 84.091, kg, PRN Elevated BP, Start date: 10/19/17 10:38:00 CDT, Duration: 5 doses or times, Stop date: 10/20/17 0:00:00 CDT Promethazin 2017-0 No Notes: Do M emoria e 4-16 not give l 15:38: IV push. (Same as: Phenergan) Flumazenil No Notes: Memor ia 4-16 (Same as: l 15:38: Romazicon) Naloxone 0 No Notes: Memoria 4-16 Same as l 15:38: Narcan sugammadex No Route: IV, M emoria (ANES) 4-16 Drug form: l 15:12: SOLN, ONCE, Stop date: 10/19/17 10:12:00 CDT phenylephri No Route: IV, Memoria ne (ANES) 4-16 Drug form: l 13:36: INJ, ONCE, Stop date: 10/19/17 8:36:00 CDT dexamethaso No Route: IV, Memoria ne (ANES) 4-16 Drug form: l 13:36: INJ, ONCE, Stop date: 10/19/17 8:36:00 CDT ondansetron No Route: IV, Memoria (ANES) 4-16 Drug form: l 13:36: INJ, ONCE, Stop date: 10/19/17 8:36:00 CDT fentaNYL No Route: IV, Mem oria (ANES) 4-16 Drug form: l 13:21: INJ, ONCE, Stop date: 10/19/17 8:21:00 CDT rocuronium 2017- No Route: IV, M emoria (ANES) 4-16 Drug form: l 13:21: INJ, ONCE, Stop date: 10/19/17 8:21:00 CDT propofol 2017-0 No Route: IV, Mem oria (ANES) 4-16 Drug form: l 13:21: INJ, ONCE, Stop date: 10/19/17 8:21:00 CDT midazolam 0 No Route: IV, Me moria (ANES) 4-16 Drug form: l 13:21: SOLN, ONCE, Stop date: 10/19/17 8:21:00 CDT acetaminoph No Route: IV, Memoria en (ANES) -16 Drug form: l 13:21: INJ, ONCE, Stop date: 10/19/17 8:21:00 CDT Lactated No Route: IV, Mem oria Ringers 4-16 Total l Injection 12:26: Volume: Lindsey nn IV (ANES) 00 1,000, 1000 mL Start date: 10/19/17 7:26:00 CDT, Stop date: 10/19/17 8:26:00 CDT Fenofibrate Yes 54 mg = 1 M emoria 54 MG Oral 4-13 tab, PO, l Tablet 13:33: Daily, 0 [place] 00 Refill(s) Trazodone Yes 50 mg = 1 Mem oria Hydrochlori 4-13 tab, PO, l de 50 MG 13:33: TID, 0 Gomez Oral Tablet 00 Refill(s) Ketorolac Yes 15 mg, Memori a 03-30 Route: IV, l 16:26: ONCE, Dosing Weight 86.818, kg, Start date: 03/30/17 11:26:00 CDT, Stop date: 03/30/17 11:26:00 CDT ondansetron No Route: IV, Memoria (ANES) 03-30 Drug form: l 14:50: INJ, ONCE, Stop date: 03/30/17 9:50:00 CDT fentaNYL No Route: IV, Mem oria (ANES) 03-30 Drug form: l 13:55: INJ, ONCE, Stop date: 03/30/17 8:55:00 CDT succinylcho No Route: IV, Memoria line (ANES) 03-30 Drug form: l 13:55: INJ, ONCE, Stop date: 03/30/17 8:55:00 CDT propofol No Route: IV, Mem oria (ANES) 03-30 Drug form: l 13:55: INJ, ONCE, Stop date: 03/30/17 8:55:00 CDT lidocaine No Route: IV, Me moria (ANES) 03-30 Drug form: l 13:55: INJ, ONCE, Stop date: 03/30/17 8:55:00 CDT dexamethaso No Route: IV, Memoria ne (ANES) 03-30 Drug form: l 13:50: INJ, ONCE, Stop date: 03/30/17 8:50:00 CDT ceFAZolin No Route: IV, Me moria (ANES) 03-30 Drug form: l 13:45: INJ, ONCE, Stop date: 03/30/17 8:45:00 CDT Naloxone No Notes: Memoria 03-30 Same as l 13:39: Narcan Flumazenil No Notes: Memor ia 03-30 (Same as: l 13:39: Romazicon) Hydromorpho No 0.5 mg, Mem oria ne 03-30 Route: l 13:39: IVP, Q5Min, Dosing Weight 86.818, kg, PRN Pain Score 7-10, Start date: 03/30/17 8:39:00 CDT, Duration: 4 doses or times, Stop date: Limited # of times Ondansetron No 4 mg, Memor ia 03-30 Route: l 13:39: IVP, ONCE, Dosing Weight 86.818, kg, PRN Nausea & Vomiting, Start date: 03/30/17 8:39:00 CDT Promethazin No Notes: Do M emoria e 03-30 not give l 13:39: IV push. (Same as: Phenergan) Oxycodone No Notes: Memori a 03-30 (Same as: l 13:39: Roxicodone ) midazolam No Route: IV, Me moria (ANES) 03-30 Drug form: l 13:15: SOLN, [place] 00 ONCE, Stop date: 03/30/17 8:15:00 CDT Drug Only No Route: IV, Me moria (ANES) + 03-30 Drug form: l dexmedetomi 13:05: SOLN, Lindsey nn dine (ANES) 00 Start (ANES) date: 03/30/17 8:05:00 CDT, Stop date: 03/30/17 9:05:00 CDT Drug Only No Route: IV, Me moria (ANES) + 03-30 Drug form: l SUFentanil 13:05: SOLN, Jay n (ANES) 00 Start (ANES) date: 03/30/17 8:05:00 CDT, Stop date: 03/30/17 9:05:00 CDT propofol No Route: IV, Mem oria (ANES) 03-30 Drug form: l (ANES) 13:05: INJ, Start Lindsey nn date: 03/30/17 8:05:00 CDT, Stop date: 03/30/17 9:05:00 CDT LR 1000 mL No Route: IV, M emoria INJ (ANES) 03-30 Total l 12:38: Volume: Gomez 00 1,000, Start date: 03/30/17 7:38:00 CDT, Stop date: 03/30/17 8:38:00 CDT ceFAZolin No Notes: Memori a 03-30 Same as: l 04:00: Ancef [place] 00 promethazin Yes 50 mg = 1 M emoria e 50 mg - tab, PO, l oral tablet 18:50: Q6H, PRN He rmann 00 Nausea & Vomiting, # 40 tab, 0 Refill(s) Hydrochloro Yes 1 tab, PO, Memoria thiazide 25 -18 Daily, # l MG / 15:53: 30 tab, 0 Gomez Losartan 00 Refill(s) Potassium 100 MG Oral Tablet Promethazin Yes 5 mL, PO, M emoria e DM oral 18 Q6H, PRN l syrup 15:53: for cough, Jay n 00 # 120 mL, 0 Refill(s) metoprolol Yes 25 mg = 1 Me moria tartrate 25 -18 tab, PO, l mg oral 15:53: BID, # 180 Herm colette tablet 00 tab, 0 Refill(s) Vital Signs Vital Name Observation Time Observation Value Comments Source Respitory Rate 2017-10-19 16:52:00 Memori al [place] Systolic (mm Hg) 2017-10-19 16:52:00 Lawson rial [place] Diastolic (mm Hg) 2017-10-19 16:52:00 Mem orial [place] Respitory Rate 2017-10-19 16:15:00 Memori al [place] Systolic (mm Hg) 2017-10-19 16:15:00 Lawson rial [place] Diastolic (mm Hg) 2017-10-19 16:15:00 Mem orial [place] Systolic (mm Hg) 2017-10-19 16:00:00 Lawson rial [place] Diastolic (mm Hg) 2017-10-19 16:00:00 Mem orial [place] Respitory Rate 2017-10-19 16:00:00 Memori al [place] Heart Rate 2017-10-19 11:38:00 [facility] [place] Height 2017-10-19 11:38:00 175.26 cm [facility] [place] BMI Calculated 2017-10-19 11:38:00 Memori al [place] Weight 2017-10-19 11:38:00 [facility] [place] Height 2017-10-16 20:13:00 175.26 cm [facility] [place] BMI Calculated 2017-10-16 20:13:00 Memori al [place] Weight 2017-10-16 20:13:00 [facility] [place] Respitory Rate 2017-03-30 17:00:00 Memori al [place] Heart Rate 2017-03-30 17:00:00 [facility] [place] Systolic (mm Hg) 2017-03-30 17:00:00 Lawson rial [place] Diastolic (mm Hg) 2017-03-30 17:00:00 Mem orial [place] Respitory Rate 2017-03-30 16:30:00 Memori al [place] Systolic (mm Hg) 2017-03-30 16:30:00 Laswon rial [place] Diastolic (mm Hg) 2017-03-30 16:30:00 Mem orial [place] Systolic (mm Hg) 2017-03-30 16:15:00 Lawson rial [place] Diastolic (mm Hg) 2017-03-30 16:15:00 Mem orial [place] Respitory Rate 2017-03-30 16:15:00 Memori al [place] Heart Rate 2017-03-30 10:54:00 [facility] [place] BMI Calculated 2017-03-30 10:54:00 Memori al [place] Weight 2017-03-30 10:54:00 [facility] [place] Height 2017-03-30 10:54:00 175.26 cm [facility] [place] Weight 2017-03-26 19:15:00 [facility] [place] Height 2017-03-26 19:15:00 175.26 cm [facility] [place] BMI Calculated 2017-03-26 19:15:00 Ariel al Gomez Procedures Procedure Date / Time Performed Performing Clinician Sourc e Implantation [facility] Gomez Encounters Start End Encounter Admission Attending Care Care Encounter Source Date/Time Date/Time Type Type Clinicians Facility Department ID 2017-10-19 2017-10-19 Outpatient [facility] [id number] 05:47:00 23:59:00 Fatou-Yen 01 Sedrick 2017-07-20 2017-08-18 Outpatient [place], [id number] 13:12:00 23:59:00 Fatou-Yen [id number] Sedrick [id number] 2017-03-30 2017-03-30 Outpatient [place]ano [facility] [id number] 05:15:00 23:59:00 Fatou-Yen 00 Sedrick Results Test Description Test Time Test Comments Results Result Comments Source CHEM PANEL 2017-10-16 60 [facility] Lindsey nn 14:10:00 CHEM PANEL 2017-10-16 13.2 [facility] Lindsey nn 14:10:00 CHEM PANEL 2017-10-16 28 [facility] Lindsey nn 14:10:00 CHEM PANEL 2017-10-16 9.0 [facility] Lindsey nn 14:10:00 CHEM PANEL 2017-10-16 105 [facility] Lindsey nn 14:10:00 CHEM PANEL 2017-10-16 4.2 [facility] Lindsey nn 14:10:00 CHEM PANEL 2017-10-16 142 [facility] Lindsey nn 14:10:00 CHEM PANEL 2017-10-16 1.38 [facility] Lindsey nn 14:10:00 CHEM PANEL 2017-10-16 83 [facility] Lindsey nn 14:10:00 CHEM PANEL 2017-10-16 30 [facility] Lindsey nn 14:10:00 CHEM PANEL 2017-03-26 49 [facility] Lindsey nn 17:35:00 CHEM PANEL 2017-03-26 4.2 [facility] Lindsey nn 17:35:00 CHEM PANEL 2017-03-26 9.3 [facility] Lindsey nn 17:35:00 CHEM PANEL 2017-03-26 30 [facility] Lindsey nn 17:35:00 CHEM PANEL 2017-03-26 103 [facility] Lindsey nn 17:35:00 CHEM PANEL 2017-03-26 37 [facility] Lindsey nn 17:35:00 CHEM PANEL 2017-03-26 140 [facility] Lindsey nn 17:35:00 CHEM PANEL 2017-03-26 78 [facility] Lindsey nn 17:35:00 CHEM PANEL 2017-03-26 1.63 [facility] Lindsey nn 17:35:00 CHEM PANEL 2017-03-26 11.2 [facility] Lindsey nn 17:35:00 SPECIAL CHEMISTRY 2017-03-26 5.8 Ophelia Dyer 17:35:00
[2020-01-01] MEDS ORDERED: dexAMETHasone 10 MG/ML VIAL ONE ×2 (13:29→13:39)
--- NOTE | 2020-01-01 14:59 | EDPHYS ---
Physician Documentation [facility] Name: Fredy More Age: 49 yrs Sex: Male : 1970 Arrival Date: 01/01/2020 Time: 12:55 Bed 23 Private MD: ED Physician Saran Bray HPI: 12/31 13:11 This 49 yrs old Male presents to ER via Ambulatory with complaints of Sore pm1 Throat. 13:11 The patient presents with sore throat. The patient describes throat pain as scratchy. pm1 Onset: The symptoms/episode began/occurred this morning. Severity of symptoms: in the emergency department the symptoms are actually worse. Modifying factors: The symptoms are alleviated by nothing, the symptoms are aggravated by nothing, Patient's oral intake status: good unaware of sick contact. Associated signs and symptoms: Pertinent negatives chest pain, chills, cough, fever, flu-like symptoms, headache, shortness of breath. The patient has not experienced similar symptoms in the past. The patient has not recently seen a physician. Historical: - Allergies: 13:02 No Known Allergies; jl7 - Home Meds: 13:02 losartan 100-25 mg Oral [Active]; [place]-3 Oral [Active]; Metoprolol Tartrate Oral jl7 [Active]; Vascepa 1 gram oral cap [Active]; - PMHx: 13:02 Hypertension; jl7 - PSHx: 13:02 cochlear implant; jl7 - Immunization history:: Adult Immunizations not up to date. - Social history:: Smoking status: Patient denies any tobacco usage or history of. ROS: 13:11 Constitutional: Negative for fever, chills, and weight loss. pm1 13:11 Eyes: Negative for injury, pain, redness, and discharge, Neck: Negative for injury, pain, and swelling, Cardiovascular: Negative for chest pain, palpitations, and edema, Respiratory: Negative for shortness of breath, cough, wheezing, and pleuritic chest pain, Abdomen/GI: Negative for abdominal pain, nausea, vomiting, diarrhea, and constipation, Back: Negative for injury and pain, MS/Extremity: Negative for injury and deformity, Skin: Negative for injury, rash, and discoloration. 13:11 Neuro: Negative for headache, weakness, numbness, tingling, and seizure. 13:11 ENT: Positive for sore throat, Negative for drainage from ear(s), ear pain. Exam: 13:11 Constitutional: This is a well developed, well nourished patient who is awake, alert, pm1 and in no acute distress. Head/Face: Normocephalic, atraumatic. 13:11 Neck: Trachea midline, no thyromegaly or masses palpated, and no cervical lymphadenopathy. Supple, full range of motion without nuchal rigidity, or vertebral point tenderness. No Meningismus. 13:11 Skin: Warm, dry with normal turgor. Normal color with no rashes, no lesions, and no evidence of cellulitis. MS/ Extremity: Pulses equal, no cyanosis. Neurovascular intact. Full, normal range of motion. 13:11 ENT: External ear(s): are unremarkable, Ear canal(s): are normal, TM's: are normal, Posterior pharynx: Airway: normal, no evidence of obstruction, Tonsils: bilaterally enlarged, with erythema, no exudate, no ulcerations, erythema, that is mild. 13:11 Cardiovascular: Exam negative for Rate: normal, Rhythm: regular, Pulses: no pulse deficits are appreciated. 13:11 Respiratory: Exam negative for acute changes, respiratory distress, shortness of breath. 13:11 Neuro: Exam negative for acute changes, Orientation: is normal, Motor: is normal, moves all fours. Vital Signs: 12:59 BP 130 / 91; Pulse 74; Resp 17; Temp 98.4; Pulse Ox 98% ; Weight 86.18 kg; Height 5 ft. jl7 9 in. (175.26 cm); Pain 8/10; 12:59 Body Mass Index 28.06 (86.18 kg, 175.26 cm) jl7 MDM: 13:11 Patient medically screened. pm1 14:58 Data reviewed: vital signs. Data interpreted: Pulse oximetry: on room air is 98 %. pm1 Interpretation: normal. Counseling: I had a detailed discussion with the patient and/or guardian regarding: the historical points, exam findings, and any diagnostic results supporting the discharge/admit diagnosis, lab results, the need for outpatient follow up, to return to the emergency department if symptoms worsen or persist or if there are any questions or concerns that arise at home. 12/31 13:10 Order name: Flu; Complete Time: 13:46 [facility] 12/31 13:10 Order name: Strep; Complete Time: 13:46 [facility] 12/31 13:31 Order name: Throat Culture EDOH Administered Medications: 13:30 Drug: Decadron 10 mg Route: IM; Site: right ventrogluteal; 14:00 Follow up: Response: No adverse reaction Disposition: 15:41 Co-signature as Attending Physician, Saran Bray MD. rn Disposition: 01/01/20 14:59 Discharged to Home. Impression: Acute pharyngitis. - Condition is Stable. - Discharge Instructions: Pharyngitis. - Work release form, Medication Reconciliation Form, Thank You Letter, Antibiotic Education, Prescription Opioid Use form. - Follow up: Emergency Department; When: As needed; Reason: Worsening of condition. Follow up: Private Physician; When: 2 - 3 days; Reason: Recheck today's complaints, Continuance of care, Re-evaluation by your physician. - Problem is new. - Symptoms have improved. Signatures: Dispatcher [employer] EDBrittnee Aquino RN RN iw Nieto, Roman, MD MD rn Marinas, Patrick, PASTRY CHEF PASTRY CHEF pm1 Rodney Brewer, RN RN jl7 Corrections: (The following items were deleted from the chart) 15:06 14:59 01/01/2020 14:59 Discharged to Home. Impression: Acute pharyngitis. Condition is iw Stable. Forms are Medication Reconciliation Form, Thank You Letter, Antibiotic Education, Prescription Opioid Use. Follow up: Emergency Department; When: As needed; Reason: Worsening of condition. Follow up: Private Physician; When: 2 - 3 days; Reason: Recheck today's complaints, Continuance of care, Re-evaluation by your physician. Problem is new. Symptoms have improved. pm1
--- NOTE | 2020-01-01 14:59 | ER ---
Nurse's Notes [facility] Name: Fredy More Age: 49 yrs Sex: Male : 1970 Arrival Date: 01/01/2020 Time: 12:55 Bed 23 Private MD: Diagnosis: Acute pharyngitis Presentation: 12/31 12:59 Chief complaint: Patient states: Sore, scratchy throat that feels swollen started this jl7 morning, denies fever, cough, congestion, shortness of breath N/V/D. Coronavirus screen: Proceed with normal triage. Patient denies a cough. Patient denies shortness of breath or difficulty breathing. Patient denies measured and/or subjective temperature greater than 100.4F prior to today's visit. Patient denies travel on a cruise ship or to a country the [facility] currently lists as an affected area. Patient denies contact with known and/or suspected case of COVID-19. Ebola Screen: No symptoms or risks identified at this time. Initial Sepsis Screen: Does the patient meet any 2 criteria? No. Patient's initial sepsis screen is negative. Does the patient have a suspected source of infection? No. Patient's initial sepsis screen is negative. Risk Assessment: Do you want to hurt yourself or someone else? Patient reports no desire to harm self or others. Onset of symptoms was January 01, 2020 at 05:00. Care prior to arrival: None. 12:59 Method Of Arrival: Ambulatory jl7 12:59 Acuity: ANG 4 jl7 Triage Assessment: 13:02 General: Appears in no apparent distress. uncomfortable, Behavior is calm, cooperative, jl7 appropriate for age. Pain: Complains of pain in sore throat Pain currently is 8 out of 10 on a pain scale. EENT: Throat is reddened. Historical: - Allergies: 13:02 No Known Allergies; jl7 - Home Meds: 13:02 losartan 100-25 mg Oral [Active]; [place]-3 Oral [Active]; Metoprolol Tartrate Oral jl7 [Active]; Vascepa 1 gram oral cap [Active]; - PMHx: 13:02 Hypertension; jl7 - PSHx: 13:02 cochlear implant; jl7 - Immunization history:: Adult Immunizations not up to date. - Social history:: Smoking status: Patient denies any tobacco usage or history of. Screenin:04 Abuse screen: Denies threats or abuse. Denies injuries from another. Nutritional jl7 screening: No deficits noted. Tuberculosis screening: No symptoms or risk factors identified. Fall Risk None identified. Assessment: 13:04 General: Appears in no apparent distress. comfortable, Behavior is calm, cooperative, jl7 appropriate for age. Pain: Complains of pain in sore throat Pain currently is 8 out of 10 on a pain scale. Neuro: Level of Consciousness is awake, alert, obeys commands, Oriented to person, place, time, situation. Cardiovascular: Patient's skin is warm and dry. Respiratory: Airway is patent Respiratory effort is even, unlabored, Respiratory pattern is regular, symmetrical, Breath sounds are clear. EENT: Throat is reddened. Derm: Skin is pink, warm \T\ dry. Vital Signs: 12:59 BP 130 / 91; Pulse 74; Resp 17; Temp 98.4; Pulse Ox 98% ; Weight 86.18 kg; Height 5 ft. jl7 9 in. (175.26 cm); Pain 8/10; 12:59 Body Mass Index 28.06 (86.18 kg, 175.26 cm) jl7 ED Course: 12:55 Patient arrived in ED. as 12:59 Rodney Brewer, REBEKA is Primary Nurse. jl7 13:00 Triage completed. jl7 13:02 Arm band placed on right wrist. jl7 13:03 Braydon Lewis NP is PHCP. pm1 13:03 Saran Bray MD is Attending Physician. pm1 13:04 Patient has correct armband on for positive identification. Bed in low position. Call jl7 light in reach. Side rails up X 1. Pulse ox on. NIBP on. 15:05 No provider procedures requiring assistance completed. Patient did not have IV access iw during this emergency room visit. Administered Medications: 13:30 Drug: Decadron 10 mg Route: IM; Site: right ventrogluteal; iw 14:00 Follow up: Response: No adverse reaction iw Outcome: 14:59 Discharge ordered by . pm1 15:05 Discharged to home ambulatory. iw 15:05 Condition: good 15:05 Discharge instructions given to patient, Instructed on discharge instructions, follow up and referral plans. Demonstrated understanding of instructions. 15:06 Patient left the ED. iw Signatures: Farzana Santizo Irene, RN RN iw Braydon Lewis, HACK SAW OPERATOR HACK SAW OPERATOR pm1 Rodney Brewer RN RN jl7
[2020-01-01 15:22] VITALS: BP 130/91; TEMP 98.4; O2SAT 98
== END 2020-01-01 15:06 | disposition home or self-care (01) ==
LOC: ER 12:52
DX: J02.9 Acute pharyngitis, unspecified (principal); I10 Essential (primary) hypertension
CPT/HCPCS: 87070; 87081; 87804 ×2; 96372; 99283; J1100

== ENCOUNTER 2020-11-04 11:37 | Emergency (ER) | payer BC ==
--- OUTSIDE RECORDS SUMMARY | 2020-11-04 11:41 | XMS REPORT | Continuity of Care Document ---
:1970 Author Organization [facility] t Address [address] [place] [address] Care Team Providers Name Role Phone Doctor Unassigned, Name Attending Clinician Unavailable Sedrick Madden Attending Clinician Problems Condition Condition Condition Status Onset Resolution Last Treating Co mments Source Name Details Category Date Date Treatment Clinician Date HEARING Diagnosis Active 2017-10-19 Me moria LOSS 3- 05:47:00 l HEARING 00:00: Gomez LOSS 00 Active 09/25/2017 [facility] VESTIBULAR Diagnosis Active 2017-07-20 Memoria 03-30 13:30:00 l 08:00: Gomez VESTIBULAR 00 Active 03/30/2017 [facility] HEAR LOSS Diagnosis Active 2017-10-07 Memoria 12-30 11:13:00 l HEAR 00:00: Gomez LOSS 00 Active 12/30/2016 [facility] Hypertensi Problem Active 2017-11-24 M emoria ve 11:38:10 l disorder, Gomez systemic Hypertensi arterial ve (disorder) disorder, systemic arterial (disorder) Active Problem 11/24/2017 [facility] Sensorineu Problem Active 2017-11-24 M emoria ral 11:38:10 l hearing Gomez loss Sensorineu (finding) ral hearing loss (finding) Active Problem 11/24/2017 [facility] Muscle Problem 2017-11-24 Memor ia weakness 11:38:10 l (generaliz Muscle Herm colette ed) weakness (generaliz ed) 11/24/2017 [facility] Other Problem 2017-11-24 Memor ia abnormalit 11:38:10 l ies of Other Gomez gait and abnormalit mobility ies of gait and mobility 11/24/2017 [facility] History of Past Illness Condition Condition Condition Status Onset Resolution Last Treating Co mments Source Name Details Category Date Date Treatment Clinician Date Dizziness Problem 2017-11-24 2017-11-24 Memoria and 2-17 11:38:10 11:38:10 l giddiness 06:01: [place] Dizziness 47 and giddiness 08/22/2017 11/24/2017 [facility] Allergies, Adverse Reactions, Alerts This patient has no known allergies or adverse reactions. Social History Social Habit Start Date Stop Date Quantity Comments Source Social History 2017-10-16 2017-10-16 [facility] 13:32:06 13:32:06 Medications Ordered Filled Start Stop Current Ordering Indication Dosage Frequency Signature Comments Components Source Medication Medication Date Date Medication? Clinician (SIG) Name Name sugammadex Yes Notes: Memor ia 4-16 (Same as: l 19:20: Bridion) Oxycodone No Notes: Memori a 4-16 (Same as: l 15:38: Roxicodone ) Ondansetron No 4 mg, Memor ia 4-16 Route: l 15:38: IVP, ONCE, 00 Dosing Weight 84.091, kg, PRN Nausea & [...] times, Stop date: 10/20/17 0:00:00 CDT Promethazin 2017- No Notes: Do M emoria e 4-16 not give l 15:38: IV push. (Same as: Phenergan) Flumazenil No Notes: Memor ia 4-16 (Same as: l 15:38: Romazicon) Naloxone No Notes: Memoria 4-16 Same as l [...] ONCE, Stop date: 10/19/17 8:36:00 CDT fentaNYL 2017-0 No Route: IV, Mem oria (ANES) 4-16 Drug form: l 13:21: INJ, ONCE, Stop date: 10/19/17 8:21:00 CDT rocuronium 2017-0 No Route: IV, M emoria (ANES) 4-16 Drug form: l 13:21: INJ, ONCE, Stop date: 10/19/17 8:21:00 CDT propofol 2018-0 No Route: IV, Mem oria (ANES) 4-16 Drug form: l 13:21: INJ, ONCE, Stop date: 10/19/17 8:21:00 CDT midazolam No Route: IV, Me moria (ANES) 4-16 Drug form: l 13:21: SOLN, 00 ONCE, Stop date: 10/19/17 8:21:00 CDT acetaminoph No Route: IV, Memoria en (ANES) 416 Drug form: l 13:21: INJ, ONCE, Stop date: 10/19/17 8:21:00 CDT Lactated No Route: IV, Mem oria Ringers -16 Total l Injection 12:26: Volume: Lindsey nn IV (ANES) 00 1,000, 1000 mL Start date: 10/19/17 7:26:00 CDT, Stop date: 10/19/17 8:26:00 CDT Fenofibrate Yes 54 mg = 1 M emoria 54 MG Oral 4-13 tab, PO, l Tablet 13:33: Daily, 0 Refill(s) Trazodone Yes 50 mg = 1 Mem oria Hydrochlori 4-13 tab, PO, l de 50 MG 13:33: TID, 0 [place] Oral Tablet 00 Refill(s) Ketorolac Yes 15 [...] 03/30/17 8:39:00 CDT Promethazin No Notes: Do Nory khan e 03-30 not give l 13:39: IV push. (Same as: Phenergan) Oxycodone No Notes: Memori a 03-30 (Same as: l 13:39: Roxicodone ) midazolam No Route: IV, Me moria (ANES) 03-30 Drug form: l 13:15: Gomez AGUIRRE 00 ONCE, Stop date: 03/30/17 8:15:00 CDT Drug Only No Route: IV, Me moria (ANES) + 03-30 Drug form: l dexmedetomi 13:05: Lindsey AGUIRRE nn dine (ANES) 00 Start (ANES) date: 03/30/17 8:05:00 CDT, Stop date: 03/30/17 9:05:00 CDT Drug Only No Route: IV, Me moria (ANES) + 03-30 Drug form: l SUFentanil 13:05: Jay AGUIRRE n (ANES) Start (ANES) date: 03/30/17 8:05:00 CDT, Stop date: 03/30/17 9:05:00 CDT propofol No Route: IV, Mem oria (ANES) 03-30 Drug form: l (ANES) 13:05: INJ, Start Lindsey nn date: 03/30/17 8:05:00 CDT, Stop date: 03/30/17 9:05:00 CDT LR 1000 mL No Route: IV, M emoria INJ (ANES) 03-30 Total l 12:38: Volume: [place] 00 1,000, Start date: 03/30/17 7:38:00 CDT, Stop date: 03/30/17 8:38:00 CDT ceFAZolin No Notes: Memori a 03-30 Same as: l 04:00: Ancef Gomez promethazin Yes 50 mg = 1 M emoria e 50 mg 03-26 tab, PO, l oral tablet 18:50: Q6H, PRN rmann Nausea & Vomiting, # 40 tab, 0 Refill(s) Hydrochloro Yes 1 tab, PO, Memoria thiazide 25 -18 Daily, # l MG / 15:53: 30 tab, 0 [place] Losartan 00 Refill(s) Potassium 100 MG Oral Tablet Promethazin Yes 5 mL, PO, M emoria e DM oral 18 Q6H, PRN l syrup 15:53: for cough, Jay n 00 # 120 mL, 0 Refill(s) metoprolol 2017 Yes 25 mg = 1 Me moria tartrate 25 9-18 tab, PO, l mg oral 15:53: BID, # 180 Herm colette tablet 00 tab, 0 Refill(s) Vital Signs Vital Name Observation Time Observation Value Comments Source Respitory Rate 2017-10-19 16:52:00 Memori al Gomez Systolic (mm Hg) 2017-10-19 16:52:00 Lawson rial Gomez Diastolic (mm Hg) 2017-10-19 16:52:00 Mem orial Gomez Respitory Rate 2017-10-19 16:15:00 Memori al Gomez Systolic (mm Hg) 2017-10-19 16:15:00 Lawson rial [place] Diastolic (mm Hg) 2017-10-19 16:15:00 Mem orial [place] Systolic (mm Hg) 2017-10-19 16:00:00 Lawson rial Gomez Diastolic (mm Hg) 2017-10-19 16:00:00 Mem orial Gomez Respitory Rate 2017-10-19 16:00:00 Memori al [place] Heart Rate 2017-10-19 11:38:00 [facility] [place] Height 2017-10-19 11:38:00 175.26 cm [facility] BMI Calculated 2017-10-19 11:38:00 Memori al Gomez Weight 2017-10-19 11:38:00 [facility] Height 2017-10-16 20:13:00 175.26 cm [facility] BMI Calculated 2017-10-16 20:13:00 Memori al [place] Weight 2017-10-16 20:13:00 [facility] [place] Diastolic (mm Hg) 2017-03-30 17:00:00 Mem orial Gomez Respitory Rate 2017-03-30 17:00:00 Memori al Gomez Heart Rate 2017-03-30 17:00:00 [facility] [place] Systolic (mm Hg) 2017-03-30 17:00:00 Lawson rial Gomez Respitory Rate 2017-03-30 16:30:00 Memori al [place] Systolic (mm Hg) 2017-03-30 16:30:00 Lawson rial Gomez Diastolic (mm Hg) 2017-03-30 16:30:00 Mem orial Gomez Systolic (mm Hg) 2017-03-30 16:15:00 Lawson dex [place] Diastolic (mm Hg) 2017-03-30 16:15:00 Mem orial Gomez Respitory Rate 2017-03-30 16:15:00 Memori al [place] Heart Rate 2017-03-30 10:54:00 [facility] BMI Calculated 2017-03-30 10:54:00 Memori al [place] Weight 2017-03-30 10:54:00 [facility] [place] Height 2017-03-30 10:54:00 175.26 cm [facility] [place] Weight 2017-03-26 19:15:00 [facility] Height 2017-03-26 19:15:00 175.26 cm [facility] BMI Calculated 2017-03-26 19:15:00 Memori al [place] Procedures Procedure Date / Time Performed Performing Clinician Sourc e Implantation [facility] [place] Encounters Start End Encounter Admission Attending Care Care Encounter Source Date/Time Date/Time Type Type Clinicians Facility Department ID 2020-09-21 2020-09-21 Orders Doctor BROOKE [id number] 00:00:00 00:00:00 Only Unassigned, LINO [id number] [facility] [id number] 2017-10-19 2017-10-19 Outpatient Chano [facility] [id number] 05:47:00 23:59:00 Fatou-Yen 01 Sedrick 2017-07-20 2017-08-18 Outpatient Chano, [id number] 13:12:00 23:59:00 Fatou-Yen [id number] Sedrick [id number] 2017-03-30 2017-03-30 [facility] [id number] 05:15:00 23:59:00 Fatou-Yen 00 Sedrick Results [...]
[2020-11-04] MEDS ORDERED: IBUPROFEN 400 MG TAB ONE (12:41)
--- NOTE | 2020-11-04 13:12 | RAD REPORT ---
EXAM DESCRIPTION: RAD - Foot Left 3 View - 11/04/2020 12:42 pm CLINICAL HISTORY: PAIN COMPARISON: Foot Left 3 View dated 09/18/2014; FOOT AP LAT dated 04/26/2012 FINDINGS: Prominent soft tissue swelling is seen along the dorsum of the midfoot. No fracture or dis location is seen. Small calcaneal spurs.
--- NOTE | 2020-11-04 13:37 | ER ---
Nurse's Notes [facility] Name: Fredy More Age: 50 yrs Sex: Male : 1970 Arrival Date: 11/04/2020 Time: 11:39 Bed 12 Private MD: Diagnosis: Localized swelling, mass and lump, left lower limb Presentation: 11/04 12:12 Chief complaint: Patient states: L ankle started throbbing yesterday then swelling. ca1 Denies injury. +Previous episode of L ankle swelling. Coronavirus screen: Client denies travel out of the [place] in the last 14 days. At this time, the client does not indicate any symptoms associated with coronavirus-19. Ebola Screen: Patient negative for fever greater than or equal to 101.5 degrees Fahrenheit, and additional compatible Ebola Virus Disease symptoms Patient denies exposure to infectious person. Patient denies travel to an Ebola-affected area in the 21 days before illness onset. No symptoms or risks identified at this time. Initial Sepsis Screen: Does the patient meet any 2 criteria? No. Patient's initial sepsis screen is negative. Does the patient have a suspected source of infection? No. Patient's initial sepsis screen is negative. Risk Assessment: Do you want to hurt yourself or someone else? Patient reports no desire to harm self or others. Onset of symptoms was November 04, 2020. 12:12 Method Of Arrival: Wheelchair ca1 12:12 Acuity: ANG 4 ca1 Historical: - Allergies: 12:16 No Known Allergies; ca1 - Home Meds: 12:16 losartan 100-25 mg Oral [Active]; Rock-3 Oral [Active]; Metoprolol Tartrate Oral ca1 [Active]; - PMHx: 12:16 Hypertension; ca1 - PSHx: 12:16 cochlear implant; ca1 - Immunization history:: Adult Immunizations not up to date, Client reports having NOT received the Covid vaccine. Flu vaccine is not up to date. - Social history:: Smoking status: Patient denies any tobacco usage or history of. Screenin:25 Abuse screen: Denies threats or abuse. Denies injuries from another. Nutritional ca1 screening: No deficits noted. Tuberculosis screening: No symptoms or risk factors identified. Fall Risk None identified. Assessment: 12:25 General: Appears in no apparent distress. comfortable, Behavior is calm, cooperative, ca1 appropriate for age. Pain: Complains of pain in left foot Pain currently is 10 out of 10 on a pain scale. Neuro: Level of Consciousness is awake, alert, obeys commands, Oriented to person, place, time, situation. Derm: Skin is intact, is healthy with good turgor, Skin is pink, warm \T\ dry. Musculoskeletal: Circulation, motion, and sensation intact. Capillary refill < 3 seconds. 13:42 Reassessment: Patient is alert, oriented x 3, equal unlabored respirations, skin aa5 warm/dry/pink. Vital Signs: 12:12 Pulse 73; Resp 18 S; Temp 97.4; Pulse Ox 98% on R/A; Weight 86.18 kg (R); Height 5 ft. ca1 9 in. (175.26 cm) (M); Pain 10/10; 12:16 BP 130 / 87; ca1 12:12 Body Mass Index 28.06 (86.18 kg, 175.26 cm) ca1 ED Course: 11:39 Patient arrived in ED. as 12:15 Triage completed. ca1 12:15 Lisa Koch FNP-C is PHCP. kb 12:15 Payam Hutchinson MD is Attending Physician. kb 12:16 Arm band placed on right wrist. ca1 12:17 Atiya Dao, REBEKA is Primary Nurse. ca1 12:25 Patient has correct armband on for positive identification. Bed in low position. Call ca1 light in reach. Side rails up X 1. 12:42 Foot Left 3 View XRAY In Process Unspecified. EDMS 13:27 US Extrmty Nonvasular Limited In Process Unspecified. EDMS 13:42 No provider procedures requiring assistance completed. Patient did not have IV access aa5 during this emergency room visit. Administered Medications: 13:09 Not Given (Pt reports taking ibuprofen today around 0930): Ibuprofen 800 mg PO once aa5 Outcome: 13:36 Discharge ordered by . kb 13:42 Discharged to home via wheelchair. aa5 13:42 Condition: stable 13:42 Discharge instructions given to patient, Instructed on discharge instructions, follow up and referral plans. medication usage, Demonstrated understanding of instructions, follow-up care, medications, Prescriptions given X 1. 13:45 Patient left the ED. aa5 Signatures: Dispatcher [employer] EDMS Lisa Koch, SNOWMOBILE MECHANIC-C SNOWMOBILE MECHANIC-Farzana Cross Audri, RN RN aa5 Angely Marin Cheryl, RN RN ca1 Corrections: (The following items were deleted from the chart) 14:24 14:07 Patient left the ED. kerrie quintero
--- NOTE | 2020-11-04 13:37 | EDPHYS ---
Physician Documentation [facility] Name: Fredy More Age: 50 yrs Sex: Male : 1970 Arrival Date: 11/04/2020 Time: 11:39 Bed 12 Private MD: ED Physician Payam Hutchinson HPI: 11/04 15:09 This 50 yrs old Male presents to ER via Wheelchair with complaints of Ankle kb Swelling. 15:09 The patient presents with pain, swelling. The complaints affect the left foot. Context: kb The problem was sustained at home, resulted from a chronic condition. Modifying factors: The symptoms are alleviated by nothing, the symptoms are aggravated by weight bearing, movement. Severity of symptoms: At their worst the symptoms were moderate, in the emergency department the symptoms are unchanged. The patient has experienced similar episodes in the past, multiple times, chronically. The patient has not recently seen a physician. 15:10 Onset: The symptoms/episode began/occurred 10 year(s) ago, and became worse yesterday. kb Associated signs and symptoms: Pertinent positives: swelling, Pertinent negatives: calf tenderness, fever, nausea, numbness, rash, tingling, vomiting, warmth, weakness. Pt reports he has an area of swelling and pain to top of left foot. States it has been going on in the same spot intermittently for the past 10 years. HAs been seen many times for it without finding a diagnosis. Pain came back yesterday and has been bad. . Historical: - Allergies: 12:16 No Known Allergies; ca1 - Home Meds: 12:16 losartan 100-25 mg Oral [Active]; [place]-3 Oral [Active]; Metoprolol Tartrate Oral ca1 [Active]; - PMHx: 12:16 Hypertension; ca1 - PSHx: 12:16 cochlear implant; ca1 - Immunization history:: Adult Immunizations not up to date, Client reports having NOT received the Covid vaccine. Flu vaccine is not up to date. - Social history:: Smoking status: Patient denies any tobacco usage or history of. ROS: 15:07 Constitutional: Negative for fever, chills, and weight loss, Neuro: Negative for kb headache, weakness, numbness, tingling, and seizure. 15:07 MS/extremity: Positive for decreased range of motion, pain, swelling, tenderness, of the dorsum of left foot. Exam: 15:08 Constitutional: This is a well developed, well nourished patient who is awake, alert, kb and in no acute distress. Head/Face: Normocephalic, atraumatic. Respiratory: Respirations even and unlabored. No increased work of breathing, no retractions or nasal flaring. Neuro: Awake and alert, GCS 15, oriented to person, place, time, and situation. Moves all extremities. Normal gait. 15:08 Musculoskeletal/extremity: Extremities: grossly normal except: noted in the dorsum of left foot: decreased ROM, pain, swelling, tenderness, ROM: limited active range of motion due to pain, in the left foot, Circulation is intact in all extremities. Sensation intact. Weight bearing: able to fully bear weight. 15:08 Skin: Appearance: normal except for affected area, swelling, noted on the dorsum of left foot, that are moderate. Vital Signs: 12:12 Pulse 73; Resp 18 S; Temp 97.4; Pulse Ox 98% on R/A; Weight 86.18 kg (R); Height 5 ft. ca1 9 in. (175.26 cm) (M); Pain 10/10; 12:16 BP 130 / 87; ca1 12:12 Body Mass Index 28.06 (86.18 kg, 175.26 cm) ca1 MDM: 12:16 Patient medically screened. kb 13:35 Data reviewed: vital signs, nurses notes. Data interpreted: Pulse oximetry: on room air kb is 98 %. Interpretation: normal. Counseling: I had a detailed discussion with the patient and/or guardian regarding: the historical points, exam findings, and any diagnostic results supporting the discharge/admit diagnosis, radiology results, the need for outpatient follow up, a family practitioner, to return to the emergency department if symptoms worsen or persist or if there are any questions or concerns that arise at home. 11/04 12:17 Order name: Foot Left 3 View XRAY; Complete Time: 13:12 kb 11/04 12:17 Order name: US Extrmty Nonvasular Limited; Complete Time: 14:30 kb Administered Medications: 13:09 Not Given (Pt reports taking ibuprofen today around 0930): Ibuprofen 800 mg PO once aa5 Disposition: 11/04/20 13:36 Discharged to Home. Impression: Localized swelling, mass and lump, left lower limb. - Condition is Stable. - Discharge Instructions: Epidermal Cyst, [id number]-[id number], Skin Abscess, [id number]. - Prescriptions for Bactrim DS 800- 160 mg Oral Tablet - take 1 tablet by ORAL route every 12 hours for 7 days; 14 tablet. - Medication Reconciliation Form, Thank You Letter, Antibiotic Education, Prescription Opioid Use form. - Follow up: Emergency Department; When: As needed; Reason: Worsening of condition. Follow up: Private Physician; When: 2 - 3 days; Reason: Recheck today's complaints, Continuance of care, Re-evaluation by your physician. Addendum: 11/07/2020 20:19 Co-signature as Attending Physician, Payam Hutchinson MD. m a2 Signatures: Dispatcher [employer] EDMS Lisa Koch, WYATT-C HAT FORMING MACHINE FEEDER-CkPayam Forbes MD MD ma2 Angely Marin Cheryl, RN RN ca1 Sheba Allen RN aa5 Corrections: (The following items were deleted from the chart) 11/04 14:07 13:36 11/04/2020 13:36 Discharged to Home. Impression: Localized swelling, mass and eb lump, left lower limb. Condition is Stable. Forms are Medication Reconciliation Form, Thank You Letter, Antibiotic Education, Prescription Opioid Use. Follow up: Emergency Department; When: As needed; Reason: Worsening of condition. Follow up: Private Physician; When: 2 - 3 days; Reason: Recheck today's complaints, Continuance of care, Re-evaluation by your physician. kb
--- NOTE | 2020-11-04 13:46 | RAD REPORT ---
EXAM DESCRIPTION: US - Extremity Nonvascular Limited - 11/04/2020 1:27 pm CLINICAL HISTORY: swelling to top of left foot;Pain COMPARISON: No comparisons TECHNIQUE: Real-time sonographic evaluation of the area of interest was performed. FINDINGS: The area of interest dorsal midfoot complex fluid collection is present measuring 2.7 cm w ith septa present. Findings are nonspecific but could represent bursitis or abscess in the correct cl inical setting. Follow-up nonemergent MRI imaging of the foot with contrast would be of value.
[2020-11-04 14:19] VITALS: TEMP 97.4; O2SAT 98
[2020-11-04 14:20] VITALS: BP 130/87
== END 2020-11-04 14:07 | disposition home or self-care (01) ==
LOC: ER 11:37
DX: R22.42 Localized swelling, mass and lump, left lower limb (principal); I10 Essential (primary) hypertension; Z96.21 Cochlear implant status
CPT/HCPCS: 76882; 99283

== ENCOUNTER 2024-04-11 02:01 | Inpatient (IN) | payer BC ==
[2024-04-11] MEDS ORDERED: KETOROLAC 30 MG/ML INJ ONE (02:39)
[2024-04-11] MEDS ORDERED: ONDANSETRON 4 MG/2 ML VIAL ONE (02:39)
[2024-04-11 02:54] LABS: Absolute Eosinophils 0.2 K/uL (0-0.5); Absolute Monocytes 0.6 K/uL (0.1-1.3); Absolute Neutrophil 5.4 K/uL (1.8-8.0); Basophils % 0.5 % (0-1.3); Eosinophils % 1.9 % (0-4.4); Hematocrit 44.1 % (39.6-49.0); Hemoglobin 14.9 g/dL (13.6-17.9); Lymphocytes % 24.8 % (15.3-44.8); MCH 30.7 pg (27.0-35.0); MCHC 33.8 g/dL (32.0-36.0); MPV 7.3 fL (7.6-11.3); Monocytes % 7.7 % (3.3-12.3); Neutrophils % 65.1 % (41.7-73.7); Platelets 210 thou/uL (152-406); RBC Red Blood Cell Count 4.85 M/uL (4.33-5.43); Red Cell Distribution Width 13.8 % (12.1-15.2)
[2024-04-11 03:18] LABS: Albumin 3.4 g/dL (3.4-5.0); Albumin/Globulin Ratio 0.8 (1.1-1.8); Bilirubin Total 0.5 mg/dL (0.2-1.0); Globulin 4.2 g/dL (2.3-3.5); Protein, Total 7.6 g/dL (6.4-8.2)
[2024-04-11 03:18] LABS: Specific Gravity 1.028 (1.005-1.030); Sqamous Epithelial None Seen /HPF (None Seen); Urine Bacteria None Seen /HPF (<20); Urine Bilirubin NEGATIVE (Negative); Urine Blood Negative (Negative); Urine Clarity Clear (Clear); Urine Color Light-Yellow (Yellow); Urine Culture Reflex Order NOT NEEDED; Urine Glucose 4+ (Over) (Negative); Urine Ketones NEGATIVE (Negative); Urine Micro Reflex YN NO BILL MICROSCOPIC; Urine Nitrite NEGATIVE (Negative); Urine Protein NEGATIVE (Negative); Urine RBC None Seen /HPF (None Seen); Urine Urobilinogen Normal (Normal); Urine WBC None Seen /HPF (<5); Urine pH 5.5 (5.0-7.0)
--- NOTE | 2024-04-11 05:06 | RAD REPORT ---
EXAM: CT Abdomen and Pelvis With Intravenous Contrast CLINICAL HISTORY: The patient is 54 years old and is Male; LLQ abd pain TECHNIQUE: Axial computed tomography images of the abdomen and pelvis with intravenous contrast. Sagittal and coronal reformatted images were created and reviewed. This CT exam was performed using one or more of the following dose reduction techniques: automated exposure control, adjustmen t of the mA and/or kV according to patient size, and/or use of iterative reconstruction technique. COMPARISON: No relevant prior studies available. FINDINGS: Lung bases: Unremarkable. No mass. No consolidation. ABDOMEN: Liver: Unremarkable. No mass. Gallbladder and bile ducts: Unremarkable. No calcified stones. No ductal dilation. Pancreas: Unremarkable. No mass. No ductal dilation. Spleen: Unremarkable. No splenomegaly. Adrenals: Unremarkable. No mass. Kidneys and ureters: Unremarkable. No solid mass. No hydronephrosis. Stomach and bowel: Peridiverticular stranding involving the sigmoid colon suggestive of diverticu litis. There are couple tiny locules of air/gas which appear extraluminal and likely represent perforation. Scattered colonic diverticula. No obstruction. PELVIS: Appendix: No findings to suggest acute appendicitis. Bladder: Unremarkable. Reproductive: Unremarkable as visualized. ABDOMEN and PELVIS: Intraperitoneal space: Unremarkable. No free air. No significant fluid collection. Bones/joints: No acute fracture. No dislocation. Soft tissues: Unremarkable. Vasculature: Unremarkable. No abdominal aortic aneurysm. Lymph nodes: Unremarkable. No enlarged lymph nodes. IMPRESSION: Peridiverticular stranding involving the sigmoid colon suggestive of diverticulitis. There are coup le tiny locules of air/gas which appear extraluminal and likely represent perforation. Electronically signed by: Liban Mora MD 04/11/2024 04:44 AM CDT 8 Due to temporary technical issues with the PACS/[employer] reporting system, reports are being murray d by the in-house radiologist without review as a courtesy to ensure prompt reporting the interpreting radiologist is fully responsible for the content of the report. Transcribed Date/Time: 04/11/2024 5:05 AM
--- NOTE | 2024-04-11 05:51 | ER ---
Nurse's Notes [facility] Name: Fredy More Age: 54 yrs Sex: Male : 1970 Arrival Date: 04/11/2024 Time: 02:01 Bed 15 Private MD: Diagnosis: Diverticulitis of intestine, part unspecified, without perforation or abscess without bleeding Presentation: 04/11 02:09 Chief complaint: Patient states: LEFT LOWER QUADRANT PAIN FOR ABOUT THREE WEEKS. ha1 02:09 Coronavirus screen: Vaccine status: Patient reports being unvaccinated. Ebola Screen: ha1 No symptoms or risks identified at this time. Initial Sepsis Screen: Does the patient meet any 2 criteria? No. Patient's initial sepsis screen is negative. Does the patient have a suspected source of infection? No. Patient's initial sepsis screen is negative. Risk Assessment: Do you want to hurt yourself or someone else? Patient reports no desire to harm self or others. Onset of symptoms was April 11, 2024. 02:09 Method Of Arrival: Ambulatory ha1 02:09 Acuity: ANG 3 ha1 Triage Assessment: 02:10 General: Appears in no apparent distress. Behavior is calm, cooperative, appropriate rg5 for age. 02:10 Pain: Complains of pain in abdomen Pain currently is 7 out of 10 on a pain scale. rg5 Quality of pain is described as aching. EENT: No deficits noted. Neuro: Level of Consciousness is awake, alert, obeys commands, Oriented to person, place, time. Cardiovascular: Denies chest pain, Heart tones S1 S2 Patient's skin is warm and dry. Respiratory: Airway is patent Trachea midline Respiratory effort is even, unlabored, Respiratory pattern is regular, symmetrical. GI: Abdomen is flat, Bowel sounds present X 4 quads. Abd is soft and non tender. : No signs and/or symptoms were reported regarding the genitourinary system. Derm: Skin is intact, Skin is dry, Skin is normal. Musculoskeletal: Circulation, motion, and sensation intact. Range of motion: intact in all extremities. Historical: - Allergies: 03:30 No Known Allergies; ha1 - PMHx: 03:30 Hypertension; ha1 - PSHx: 03:30 COCHLEAR IMPLANT (2019); ha1 - Immunization history:: Adult Immunizations up to date. - Infectious Disease History:: Denies. - Social history:: Smoking status: Patient denies any tobacco usage or history of. Screenin:15 [facility] ED Fall Risk Assessment (Adult) History of falling in the last 3 months, rg5 including since admission No falls in past 3 months (0 pts) Confusion or Disorientation No (0 pts) Intoxicated or Sedated No (0 pts) Impaired Gait No (0 pts) Mobility Assist Device Used Altered Elimination No (0 pt) Score/Fall Risk Level 0 - 2 = Low Risk Oriented to surroundings, Maintained a safe environment, Hourly rounding (assess needs \T\ fall precautionary measures) done. Abuse screen: Denies threats or abuse. Nutritional screening: No deficits noted. Tuberculosis screening: No symptoms or risk factors identified. Assessment: 03:27 Reassessment: Patient and/or family updated on plan of care and expected duration. Pain rg5 level reassessed. Patient is alert, oriented x 3, equal unlabored respirations, skin warm/dry/pink. Patient states feeling better. Patient states symptoms have improved. 08:08 Reassessment: ATTEMPTED TO CALL UNIT FOR QUESTIONS. NO ANSWER. db 08:08 Reassessment: Patient appears in no apparent distress at this time. Patient and/or db family updated on plan of care and expected duration. Pain level reassessed. Patient is alert, oriented x 3, equal unlabored respirations, skin warm/dry/pink. Vital Signs: 02:09 BP 130 / 83; Pulse 80; Resp 17 S; Temp 97.9; Pulse Ox 96% on R/A; Weight 83.91 kg; ha1 Height 5 ft. 9 in. ; 03:26 BP 173 / 83; Pulse 71; Resp 16; Pulse Ox 97% on R/A; Pain 0/10; rg5 04:30 BP 157 / 76; Pulse 67; Resp 17 S; Pulse Ox 95% on R/A; Pain 0/10; rg5 05:14 BP 181 / 90; Pulse 65; Resp 16 S; Pulse Ox 96% on R/A; Pain 0/10; rg5 06:00 BP 178 / 104; Pulse 69; Resp 17; Pulse Ox 95% on R/A; rg5 07:30 BP 123 / 80; Pulse 61; Resp 18; Temp 97.9; Pulse Ox 99% ; db 02:09 Body Mass Index 27.32 (83.91 kg, 175.26 cm) ha1 03:26 Pain Scale: Adult rg5 04:30 Pain Scale: Adult rg5 05:14 Pain Scale: Adult rg5 [place] Coma Score: 02:15 Eye Response: spontaneous(4). Motor Response: obeys commands(6). Verbal Response: rg5 oriented(5). Total: 15. ED Course: 02:03 Patient arrived in ED. [id number] 02:04 Pasha Moore MD is Attending Physician. ec2 02:10 Arm band placed on right wrist. rg5 02:11 Durga Rodríguez, REBEKA is Primary Nurse. rg5 02:15 Patient has correct armband on for positive identification. Bed in low position. Call rg5 light in reach. Side rails up X 1. 02:15 No provider procedures requiring assistance completed. Inserted saline lock: 20 gauge rg5 in right antecubital area, using aseptic technique. Blood collected. Flushed with 10 mL NS. 03:30 Triage completed. ha1 03:51 CT Abd/Pelvis - IV Contrast Only In Process Unspecified. EDMS 05:50 Payam Graham MD is Hospitalizing Provider. ec2 06:21 Hospitalizing Provider role handed off by Payam Graham MD ec2 06:21 Sedrick Mccrary is Hospitalizing Provider. ec2 06:22 Sedrick Mccrary is Hospitalizing Provider. ec2 08:08 Provided Education on: ADMISSION. Pulse ox on. NIBP on. Warm blanket given. db 08:08 Patient admitted, IV remains in place. db Administered Medications: 02:45 Drug: TORadol - Ketorolac IVP 15 mg IVP once Route: IVP; Site: right antecubital; rg5 05:15 Follow up: Response: No adverse reaction; Pain is decreased rg5 02:45 Drug: Ondansetron IVP 4 mg IVP once; over 2 minutes Route: IVP; Site: right antecubital;rg5 05:15 Follow up: Response: No adverse reaction rg5 06:20 Drug: Piperacillin-Tazobactam IVPB 3.375 grams IVPB once over 60 mins; (mix in NS 100 rg5 mL) Route: IVPB; Infused Over: 60 mins; Site: right antecubital; 07:28 Follow up: Response: No adverse reaction; IV Status: Completed infusion; IV Intake: db 100ml Medication: 02:15 VIS not applicable for this client. rg5 Intake: 07:28 IV: 100ml; Total: 100ml. db Outcome: 05:50 Decision to Hospitalize by Provider. ec2 06:22 Decision to Hospitalize by Provider. ec2 08:08 Admitted to Med/surg accompanied by nurse, db 08:08 Condition: stable 08:08 Instructed on the need for admit, 08:20 Patient left the ED. db Signatures: Dispatcher [employer] EDMS CheungMarbella Sonya jj6 Carey Major RN RN ha1 Vilma Russell RN RN db Pasha Moore MD MD ec2 Durga Rodríguez RN RN rg5 Corrections: (The following items were deleted from the chart) 05:19 05:16 General: Appears rg5 rg5 06:34 05:14 BP 107 / 70; Pulse 65bpm; Resp 16bpm; Spontaneous; Pulse Ox 96% RA; Pain 0/10, rg5 Adult; rg5 06:35 04:30 BP 110 / 76; Pulse 63bpm; Resp 17bpm; Spontaneous; Pulse Ox 95% RA; Pain 0/10, rg5 Adult; rg5 06:37 02:15 BP 130 / 83; Pulse 77bpm; Resp 17bpm; Pulse Ox 97% RA; Temp 98.2F Oral; Pain rg5 7/10, Adult; rg5 06:37 03:26 BP 113 / 72; Pulse 71bpm; Resp 16bpm; Pulse Ox 97% RA; Pain 2/10, Adult; rg5 rg5 06:37 04:30 BP 157 / 76; Pulse 63bpm; Resp 17bpm; Spontaneous; Pulse Ox 95% RA; Pain 0/10, rg5 Adult; rg5
--- NOTE | 2024-04-11 05:51 | EDPHYS ---
Physician Documentation [facility] Name: Fredy More Age: 54 yrs Sex: Male : 1970 Arrival Date: 04/11/2024 Time: 02:01 Bed 15 Private MD: ED Physician Pasha Moore HPI: 04/11 02:27 This 54 yrs old Male presents to ER via Unassigned with complaints of ec2 Abdominal Pain. 02:27 Patient arrives today for evaluation of abdominal pain ongoing for several weeks. ec2 Intermittent. Patient reports pain worsens at times with no specific alleviating or exacerbating factors. Some nausea, no vomiting. Denies any urinary complaints. Reports no history of previous abdominal surgeries, no previous kidney stones.. Historical: - Allergies: 03:30 No Known Allergies; ha1 - PMHx: 03:30 Hypertension; ha1 - PSHx: 03:30 COCHLEAR IMPLANT (2019); ha1 - Immunization history:: Adult Immunizations up to date. - Infectious Disease History:: Denies. - Social history:: Smoking status: Patient denies any tobacco usage or history of. ROS: 02:27 Constitutional: as per hpi ec2 Exam: 02:27 Constitutional: GEN: NAD Head: atraumatic Eyes: EOMI Ears: External ears are ec2 normal. CV: regular rate LUNGS: no respiratory distress ABD: non-distended, soft, tender in the left lower quadrant, not guarding, not rigid, negative flank bilaterally SKIN: no evidence of rashes MSK: no evidence of trauma Vital Signs: 02:09 BP 130 / 83; Pulse 80; Resp 17 S; Temp 97.9; Pulse Ox 96% on R/A; Weight 83.91 kg; ha1 Height 5 ft. 9 in. ; 03:26 BP 173 / 83; Pulse 71; Resp 16; Pulse Ox 97% on R/A; Pain 0/10; rg5 04:30 BP 157 / 76; Pulse 67; Resp 17 S; Pulse Ox 95% on R/A; Pain 0/10; rg5 05:14 BP 181 / 90; Pulse 65; Resp 16 S; Pulse Ox 96% on R/A; Pain 0/10; rg5 06:00 BP 178 / 104; Pulse 69; Resp 17; Pulse Ox 95% on R/A; rg5 07:30 BP 123 / 80; Pulse 61; Resp 18; Temp 97.9; Pulse Ox 99% ; db 02:09 Body Mass Index 27.32 (83.91 kg, 175.26 cm) ha1 03:26 Pain Scale: Adult rg5 04:30 Pain Scale: Adult rg5 05:14 Pain Scale: Adult rg5 [place] Coma Score: 02:15 Eye Response: spontaneous(4). Motor Response: obeys commands(6). Verbal Response: rg5 oriented(5). Total: 15. MDM: 02:22 Patient medically screened. ec2 02:27 Data reviewed: vital signs. ED course: Patient arrives today for evaluation of left ec2 lower quadrant abdominal pain. Examination remarkable for well-appearing nontoxic dividual who is tender in the left lower quadrant. Will obtain lab work, CT imaging. Differential includes ureteral stone, diverticulitis, UTI . 03:21 ED course: CBC is reassuring. Metabolic profile shows renal dysfunction with a ec2 creatinine 1.45 and GFR 57. Lipase is minimally elevated, urine is noninfectious appearing. . 05:49 ED course: CT imaging shows diverticulitis with slight perforation. Will admit with [facility] general surgery consultation. . 06:22 ED course: Discussed case with Dr. Whiteside who agrees to consult, discussed case with [facility] hospitalist, pending admission.. 04/11 02:27 Order name: CBC with Diff; Complete Time: 03:21 ec2 04/11 02:27 Order name: CMP; Complete Time: 03:21 ec2 04/11 02:27 Order name: Lipase; Complete Time: 03:21 ec2 04/11 02:28 Order name: UAM; Complete Time: 03:21 ec2 04/11 06:59 Order name: CBC with Automated Diff EDMS 04/11 06:59 Order name: CBC with Automated Diff EDMS 04/11 06:59 Order name: CBC with Automated Diff EDMS 04/11 06:59 Order name: CBC with Automated Diff EDMS 04/11 06:59 Order name: CBC with Automated Diff EDMS 04/11 06:59 Order name: CBC with Automated Diff EDMS 04/11 06:59 Order name: CBC with Automated Diff EDMS 04/11 06:59 Order name: CBC with Automated Diff EDMS 04/11 06:59 Order name: Comprehensive Metabolic Panel EDMS 04/11 06:59 Order name: Comprehensive Metabolic Panel EDMS 04/11 06:59 Order name: Comprehensive Metabolic Panel EDMS 04/11 06:59 Order name: Comprehensive Metabolic Panel EDMS 04/11 06:59 Order name: Comprehensive Metabolic Panel EDMS 04/11 06:59 Order name: Comprehensive Metabolic Panel EDMS 04/11 06:59 Order name: Comprehensive Metabolic Panel EDMS 04/11 06:59 Order name: Comprehensive Metabolic Panel EDMS 04/11 06:59 Order name: Lipase EDMS 04/11 06:59 Order name: Lipase EDMS 04/11 06:59 Order name: Lipase EDMS 04/11 06:59 Order name: Lipase EDMS 04/11 06:59 Order name: Lipase EDMS 04/11 06:59 Order name: Lipase EDMS 04/11 06:59 Order name: Lipase EDMS 04/11 06:59 Order name: Lipase EDMS 04/11 06:59 Order name: Lipid Profile EDMS 04/11 06:59 Order name: Lipid Profile EDMS 04/11 06:59 Order name: Magnesium EDMS 04/11 06:59 Order name: Magnesium EDMS 04/11 06:59 Order name: Magnesium EDMS 04/11 06:59 Order name: Magnesium EDMS 04/11 06:59 Order name: Magnesium EDMS 04/11 06:59 Order name: Magnesium EDMS 04/11 06:59 Order name: Magnesium EDMS 04/11 06:59 Order name: Magnesium EDMS 04/11 06:59 Order name: Phosphorus EDMS 04/11 06:59 Order name: Phosphorus EDMS 04/11 06:59 Order name: Phosphorus EDMS 04/11 06:59 Order name: Phosphorus EDMS 04/11 06:59 Order name: Phosphorus EDMS 04/11 06:59 Order name: Phosphorus EDMS 04/11 06:59 Order name: Phosphorus EDMS 04/11 06:59 Order name: Phosphorus EDMS 04/11 02:27 Order name: CT Abd/Pelvis - IV Contrast Only ec2 04/11 06:59 Order name: CONS Physician Consult EDMS 04/11 02:27 Order name: IV Saline Lock; Complete Time: 02:40 ec2 04/11 02:27 Order name: Labs collected and sent; Complete Time: 02:40 ec2 Administered Medications: 02:45 Drug: TORadol - Ketorolac IVP 15 mg IVP once Route: IVP; Site: right antecubital; rg5 05:15 Follow up: Response: No adverse reaction; Pain is decreased rg5 02:45 Drug: Ondansetron IVP 4 mg IVP once; over 2 minutes Route: IVP; Site: right antecubital;rg5 05:15 Follow up: Response: No adverse reaction rg5 06:20 Drug: Piperacillin-Tazobactam IVPB 3.375 grams IVPB once over 60 mins; (mix in NS 100 rg5 mL) Route: IVPB; Infused Over: 60 mins; Site: right antecubital; 07:28 Follow up: Response: No adverse reaction; IV Status: Completed infusion; IV Intake: db 100ml Disposition Summary: 04/11/24 06:22 Hospitalization Ordered Notes: Hospitalization Status: Inpatient Admission(04/11/24 06:22) ec2 Provider: Sedrick Mccrary(04/11/24 06:22) ec2 Location: Telemetry/MedSurg (Inpatient)(04/11/24 06:22) ec2 Condition: Stable(04/11/24 06:22) ec2 Problem: new(04/11/24 06:22) ec2 Symptoms: have improved(04/11/24 06:22) ec2 Bed/Room Type: Standard(04/11/24 06:22) ec2 Room Assignment: 214(04/11/24 07:05) bd Diagnosis - Diverticulitis of intestine, part unspecified, without perforation or abscess ec2 without bleeding(04/11/24 06:22) Forms: - Medication Reconciliation Form ec2 - SBAR form ec2 - Leadership Thank You Letter ec2 Signatures: Dispatcher [employer] EDMS Sarita Ty Heidy RN RN ha1 Pasha Moore MD MD ec2 Durga Rodríguez RN RN rg5 Vilma Russell RN db Corrections: (The following items were deleted from the chart) 02:27 02:27 CBC+H.LAB.BRZ ordered. EDMS EDMS 02:27 02:27 COMPREHENSIVE METABOLIC PANEL+C.LAB.BRZ ordered. EDMS EDMS 02:27 02:27 LIPASE+C.LAB.BRZ ordered. EDMS EDMS 02:27 02:27 Abdomen Pelvis W Con+CT.RAD.BRZ ordered. EDMS EDMS 06:21 05:50 Inpatient Admission ec2 ec2 06:21 05:50 Payam Graham ec2 ec2 06:21 05:50 Telemetry/MedSurg (Inpatient) ec2 ec2 06:21 05:50 Stable ec2 ec2 06:21 05:50 new ec2 ec2 06:21 05:50 have improved ec2 ec2 06:21 05:50 Standard ec2 ec2 06:21 05:50 ec2 ec2 06:21 05:50 Diverticulitis of intestine, part unspecified, without perforation or abscess ec2 without bleeding ec2 06:21 06:21 Sedrick Mccrary ec2 ec2 07:05 06:22 ec2 bd
[2024-04-11] MEDS ORDERED: PIPERACIL/TAZO 3.375 GM VIAL IV ONE (06:17)
[2024-04-11] MEDS ORDERED: NA CHLORIDE 0.9% 100 ML ONE (06:17)
--- NOTE | 2024-04-11 06:40 | P.HP ---
Certification for Inpatient Patient admitted to: Inpatient With expected LOS: >2 Midnights Patient will require the following post-hospital care: None Practitioner: I am a practitioner with admitting privileges, knowledge of patient current condition, hospital course, and medical plan of care. Services: Services provided to patient in accordance with Admission requirements found in Title 42 Section 412.3 of the Code of Federal Regulations Patient History Date of Service: 04/11/24 Reason for admission: Acute Diverticulitis History of Present Illness: Fredy More is a 54 year old male with Pmhx of hypertension, chronic bronchitis, and a cochlear implant (2019) who presents to the ED with chief complaint of intermittent left sided abdominal pain for several weeks. He reports having a similar episode when he was 27 or 28 years old. At that time he changed the way he was eating to improve his symptoms. He states he is going through pre-procedure work up for a colonoscopy. CT abd/pelvis showing "Peridiverticular stranding involving the sigmoid colon suggestive of diverticulitis. There are couple tiny locules of air/gas which appear extraluminal and likely represent perforation." Initial vitals BP 130 / 83; Pulse 80; Resp 17 S; Temp 97.9; Pulse Ox 96% on R/A Fredy will be admitted to hospitalist service for further treatment of acute diverticulitis, Dr. Rizo consulted. Allergies No Known Drug Allergies Allergy (Verified 04/11/24 16:35) Unknown Home Medications: [place]-3 Fatty Acids/Fish Oil [Fish Oil 1,000 mg Softgel] 1 each PO DAILY #0 capsule 01/19/14 Atorvastatin Calcium 20 mg PO DAILY 04/11/24 Dapagliflozin Propanediol [Farxiga] 10 mg PO DAILY 04/11/24 Metoprolol Tartrate [Lopressor*] 12.5 mg PO DAILY 04/11/24 Valsartan/Hydrochlorothiazide [Valsartan-Hctz 160-12.5 mg Tab] 160 mg PO DAILY 04/11/24 - Past Medical/Surgical History Diabetic: No -: HTN -: Chronic bronchitis -: Cochlear implant 2019 - Social History Smoking Status: Never smoker Alcohol use: Yes CD- Drugs: No Caffeine use: Yes Review of Systems Gastrointestinal: Abdominal Pain (left sided) Physical Examination - Physical Exam General: Alert, In no apparent distress, Oriented x3 HEENT: Atraumatic, Normocephalic Neck: Supple, 2+ carotid pulse no bruit, JVD not distended Respiratory: Clear to auscultation bilaterally, Normal air movement Cardiovascular: Normal pulses, Regular rate/rhythm, Normal S1 S2 Capillary refill: <2 Seconds Gastrointestinal: Soft and benign, Tenderness (left side) Musculoskeletal: No clubbing Integumentary: No rashes Neurological: Normal speech, Normal tone - Studies Laboratory Data (last 24 hrs) 04/11/24 04/11/24 02:40 02:40 WBC 8.20 Hgb 14.9 Hct 44.1 Plt Count 210 Sodium 138 Potassium 4.0 BUN 33 H Creatinine 1.45 H Glucose 133 H Total Bilirubin 0.5 AST 19 ALT 23 Alkaline Phosphatase 73 Lipase 84 H Assessment and Plan - Plan Assessment and Plan Acute diverticulitis -CT abd/pelvis showing "Peridiverticular stranding involving the sigmoid colon suggestive of diverticulitis. There are couple tiny locules of air/gas which appear extraluminal and likely represent perforation." -Clear liquid per Dr. Rizo -Consult Dr. Rizo -Zosyn given in the ED -Cipro/flagyl to be given on the floor -IVF -Pain control -Lipase 84, monitor daily DAMARI -Report history of monitoring kidney function -BUN/creatinine 33/1.45, GFR 57 -IV fluids -Monitor in a.m. lab HTN -IV Hydralazine PRN -restart home medication when appropriate Cochlear implant -implanted in 2019 -Supportive care DVT ppx lovenox Full code LOS 2-3 days Discharge Plan: Home Plan to discharge in: 48 Hours - Advance Directives Does patient have a Living Will: No Does patient have a Durable POA for Healthcare: No
[2024-04-11] MEDS ORDERED: HYDRALAZINE HCL 20 MG/ML VIAL IV PRN (06:52)
[2024-04-11 08:53] VITALS: BMI 27.3
[2024-04-11] MEDS: Levofloxacin 750mg IV 750 MG/150 ML BAG IV SCH (09:00)
[2024-04-11] MEDS ORDERED: CIPROFLOXACIN 400mg IV 400 MG/200 ML BAG IV SCH (09:00)
[2024-04-11] MEDS: NA CHLORIDE 0.9% 1,000 ML IV SCH (09:05)
[2024-04-11] MEDS: METRONIDAZOLE 500mg IVPB 500 MG/100 ML BAG IV SCH (09:05)
--- NOTE | 2024-04-11 16:38 | P.CNS ---
Date of Consult: 04/11/24 PC: I was asked to see this 54-year-old male in regards to lower abdominal pain. HPC: Patient says he has had abdominal pain for the last couple of weeks. However yesterday became increasingly severe. Coming in waves. He could no longer stand and came to the hospital for diagnosis and treatment. PSHx: Cochlear implant PMHx: [] Social Hx: No known allergies Sys R: No cough, wheeze, shortness of breath. No chest pain or palpitations. O/E: Awake alert comfortable at the moment vital signs are stable HEENT: Not jaundiced Chest: Chest movement equal bilaterally Abd: Tenderness with guarding in the lower abdomen, midline [place]: Intact Data: CT scan shows diverticulitis with small microperforation, WBC at the current time 8.6 Impression: Ruptured diverticulitis with small leak contained Plan: At the current time the patient is feeling much better since his admission and started on antibiotics. He is comfortable at the moment. Recommend be kept n.p.o., IV fluids at the moment with antibiotics. May start clear liquids possibly tomorrow depending on his clinical findings. Do not anticipate that he is going to require surgical intervention during his stay. He obviously needs a follow-up colonoscopy in 6 to 8 weeks.
[2024-04-12 06:12] LABS: Absolute Eosinophils 0.2 K/uL (0-0.5); Absolute Lymphocytes (CBC) 1.8 K/uL (0.7-4.9); Absolute Monocytes 0.5 K/uL (0.1-1.3); Basophils % 0.4 % (0-1.3); Eosinophils % 3.2 % (0-4.4); Hematocrit 42.5 % (39.6-49.0); Hemoglobin 14.1 g/dL (13.6-17.9); Lymphocytes % 33.6 % (15.3-44.8); MCH 30.2 pg (27.0-35.0); MCHC 33.1 g/dL (32.0-36.0); MCV 91.3 fL (80-100); MPV 7.3 fL (7.6-11.3); Monocytes % 8.3 % (3.3-12.3); Neutrophils % 54.5 % (41.7-73.7); Platelets 180 thou/uL (152-406); RBC Red Blood Cell Count 4.66 M/uL (4.33-5.43); Red Cell Distribution Width 13.5 % (12.1-15.2)
[2024-04-12 06:31] LABS: Albumin 2.8 g/dL (3.4-5.0); Albumin/Globulin Ratio 0.7 (1.1-1.8); Anion Gap 5.3 mEq/L (5.0-15.0); Bilirubin Total 0.6 mg/dL (0.2-1.0); Magnesium 1.8 mg/dL (1.6-2.4); Phosphorus 2.8 mg/dL (2.5-4.9); Potassium 4.3 mEq/L (3.5-5.1); Protein, Total 6.8 g/dL (6.4-8.2)
[2024-04-12] MEDS: ENOXAPARIN 40 MG/0.4 ML SQ SCH (08:55)
[2024-04-12] MEDS: MAGNESIUM SULFATE 1 gm IVPB 1 GM/100 ML BAG IV ONE (10:28)
--- NOTE | 2024-04-12 12:28 | P.PN ---
Date of Service: 04/12/24 Subjective: Left lower quadrant pain improving Tolerating clear liquids at this time ROS: 10 point ROS as noted above, otherwise negative Physical exam GEN: Alert, oriented, NAD HEENT: Normal conjunctiva, sclera anicteric CV: Regular rate and rhythm, no edema Pulm: Nonlabored respirations on room air ABD: Soft, mild left lower quadrant tenderness, nondistended MSK: No joint tenderness Integumentary: No rashes Neuro: Normal speech, normal affect Vitals reviewed Assessment and Plan Acute diverticulitis -CT abd/pelvis showing "Peridiverticular stranding involving the sigmoid colon suggestive of diverticulitis. There are couple tiny locules of air/gas which appear extraluminal and likely represent perforation." -Clear liquid per Dr. Rizo -Consult Dr. Rizo -Cipro/flagyl to be given on the floor DAMARI -Report history of monitoring kidney function -Renal function improving -Continue gentle IV fluids -Daily chemistry HTN -IV Hydralazine PRN -restart home medication when appropriate Cochlear implant -implanted in 2019 -Supportive care DVT ppx lovenox Full code LOS 2-3 days Discharge Plan: Home Plan to discharge in: 48 Hours Time Spent Managing Pts Care (In Minutes): 35
[2024-04-12] MEDS: Levofloxacin 750mg IV 750 MG/150 ML BAG IV SCH (15:07)
[2024-04-12] MEDS: MORPHINE 2 MG/ML SYR IV PRN (23:25)
[2024-04-13 05:08] LABS: Absolute Eosinophils 0.1 K/uL (0-0.5); Absolute Monocytes 0.4 K/uL (0.1-1.3); Absolute Neutrophil 2.4 K/uL (1.8-8.0); Basophils % 0.5 % (0-1.3); Eosinophils % 2.6 % (0-4.4); Hematocrit 42.2 % (39.6-49.0); Hemoglobin 14.1 g/dL (13.6-17.9); Lymphocytes % 39.5 % (15.3-44.8); MCH 30.2 pg (27.0-35.0); MCHC 33.4 g/dL (32.0-36.0); MCV 90.4 fL (80-100); MPV 7.1 fL (7.6-11.3); Monocytes % 8.7 % (3.3-12.3); Neutrophils % 48.7 % (41.7-73.7); Platelets 199 thou/uL (152-406); RBC Red Blood Cell Count 4.67 M/uL (4.33-5.43); Red Cell Distribution Width 13.3 % (12.1-15.2)
[2024-04-13 05:10] VITALS: TEMP 97.8
[2024-04-13 05:27] LABS: Albumin 2.8 g/dL (3.4-5.0); Albumin/Globulin Ratio 0.7 (1.1-1.8); Anion Gap 6.7 mEq/L (5.0-15.0); Bilirubin Total 0.4 mg/dL (0.2-1.0); Globulin 4.1 g/dL (2.3-3.5); Phosphorus 2.6 mg/dL (2.5-4.9); Potassium 3.7 mEq/L (3.5-5.1); Protein, Total 6.9 g/dL (6.4-8.2)
[2024-04-13 08:49] VITALS: BP 115/59
[2024-04-13 08:50] VITALS: O2SAT 95
--- NOTE | 2024-04-13 09:08 | P.DS ---
Admission Date: 04/11/24 Discharge Date: 04/13/24 Disposition: ROUTINE DISCHARGE Discharge Condition: GOOD Reason for Admission: Acute Diverticulitis Brief History of Present Illness: Fredy More is a 54 year old male with Pmhx of hypertension, chronic bronchitis, and a cochlear implant (2019) who presents to the ED with chief complaint of intermittent left sided abdominal pain for several weeks. He reports having a similar episode when he was 27 or 28 years old. At that time he changed the way he was eating to improve his symptoms. He states he is going through pre-procedure work up for a colonoscopy. CT abd/pelvis showing "Peridiverticular stranding involving the sigmoid colon suggestive of diverticulitis. There are couple tiny locules of air/gas which appear extraluminal and likely represent perforation." Hospital Course: Assessment Acute diverticulitis DAMARI HTN Cochlear implant Patient was admitted to the hospital for diverticulitis with microperforation on 04/11. He was evaluated by general surgery who recommended medical management. He continued to improve throughout his hospitalization, white blood cell count remained within normal limits and he remained afebrile, he had mild abdominal pain/tenderness which has also been improving. Patient is stable for discharge and outpatient follow-up at this time. He was working on getting scheduled to have a colonoscopy with Dr. Wilson but needed clearance from pulmonology/nephrology prior to his scope. He will need to wait 6 to 8 weeks for his colonoscopy after this episode of diverticulitis. He reports he has had issues with his kidneys in the past, his initial creatinine was 1.45 with a GFR of 57. The next 2 days his creatinine was 1.13 and 1.12 GFR 77 and 78. Also his A1c was 5.5. Patient will be sent prescriptions for antibiotics Cipro/Flagyl for 14 days as well as as needed pain medications and probiotics. Please follow-up with your primary care doctor in 1 to 2 weeks-A1c was 5.5 Follow-up with Dr. Wilson to arrange for colonoscopy in 6 to 8 weeks Please follow-up with Dr. Rizo with general surgery in 1 to 2 weeks Vital Signs/Physical Exam: Temp Pulse Resp BP Pulse Ox 97.8 F 58 16 115/59 L 95 04/13/24 08:00 04/13/24 08:00 04/13/24 08:00 04/13/24 08:00 04/13/24 08:00 General: Alert, In no apparent distress, Oriented x3 HEENT: Atraumatic, PERRLA Neck: Supple, JVD not distended Respiratory: Normal air movement Cardiovascular: Regular rate/rhythm, Normal S1 S2 Gastrointestinal: Normal bowel sounds, Tenderness (Mild LLQ tenderness) Musculoskeletal: No tenderness Integumentary: No rashes Neurological: Normal speech, Normal tone, Normal affect Lymphatics: No axilla or inguinal lymphadenopathy Laboratory Data at Discharge: WBC 5.00 thou/uL (4.3-10.9) 04/13/24 04:42 Hgb 14.1 g/dL (13.6-17.9) 04/13/24 04:42 Hct 42.2 % (39.6-49.0) 04/13/24 04:42 Plt Count 199 thou/uL (152-406) 04/13/24 04:42 Sodium 140 mEq/L (136-145) 04/13/24 04:42 Potassium 3.7 mEq/L (3.5-5.1) D 04/13/24 04:42 BUN 13 mg/dL (7-18) 04/13/24 04:42 Creatinine 1.12 mg/dL (0.70-1.30) 04/13/24 04:42 Glucose 94 mg/dL (74-106) 04/13/24 04:42 Phosphorus 2.6 mg/dL (2.5-4.9) 04/13/24 04:42 Magnesium 2.0 mg/dL (1.6-2.4) 04/13/24 04:42 Total Bilirubin 0.4 mg/dL (0.2-1.0) 04/13/24 04:42 AST 13 U/L (15-37) L 04/13/24 04:42 ALT 17 U/L (16-61) 04/13/24 04:42 Alkaline Phosphatase 61 U/L (45-117) 04/13/24 04:42 Triglycerides 154 mg/dL (<150) H 04/12/24 05:42 Cholesterol 113 mg/dL (<200) 04/12/24 05:42 HDL Cholesterol 40 mg/dL (40-60) 04/12/24 05:42 Cholesterol/HDL Ratio 2.83 04/12/24 05:42 Lipase 40 U/L (13-75) 04/13/24 04:42 Home Medications: Ashby-3 Fatty Acids/Fish Oil [Fish Oil 1,000 mg Softgel] 1 each PO DAILY #0 capsule 01/19/14 Atorvastatin Calcium 20 mg PO DAILY 04/11/24 Dapagliflozin Propanediol [Farxiga] 10 mg PO DAILY 04/11/24 Metoprolol Tartrate [Lopressor*] 12.5 mg PO DAILY 04/11/24 Valsartan/Hydrochlorothiazide [Valsartan-Hctz 160-12.5 mg Tab] 160 mg PO DAILY 04/11/24 Ciprofloxacin HCl 500 mg PO BID 14 Days #28 tab 04/13/24 Hydrocodone 5/APAP 325 [[place] 5/325] 1 tab PO Q6H PRN #15 tab 04/13/24 Lactobacillus Acidophilus 1 each PO DAILY #30 cap 04/13/24 metroNIDAZOLE [Flagyl] 500 mg PO Q8H 14 Days #42 tab 04/13/24 New Medications: Ciprofloxacin HCl 500 mg PO BID 14 Days #28 tab metroNIDAZOLE [Flagyl] 500 mg PO Q8H 14 Days #42 tab Lactobacillus Acidophilus 1 each PO DAILY #30 cap Hydrocodone 5/APAP 325 [[place] 5/325] 1 tab PO Q6H PRN #15 tab PRN Reason: Pain Physician Discharge Instructions: Patient was admitted to the hospital for diverticulitis with microperforation on 04/11. He was evaluated by general surgery who recommended medical management. He continued to improve throughout his hospitalization, white blood cell count remained within normal limits and he remained afebrile, he had mild abdominal pain/tenderness which has also been improving. Patient is stable for discharge and outpatient follow-up at this time. He was working on getting scheduled to have a colonoscopy with Dr. Wilson but needed clearance from pulmonology/nephrology prior to his scope. He will need to wait 6 to 8 weeks for his colonoscopy after this episode of diverticulitis. He reports he has had issues with his kidneys in the past, his initial creatinine was 1.45 with a GFR of 57. The next 2 days his creatinine was 1.13 and 1.12 GFR 77 and 78. Also his A1c was 5.5. Patient will be sent prescriptions for antibiotics Cipro/Flagyl for 14 days as well as as needed pain medications and probiotics. Please follow-up with your primary care doctor in 1 to 2 weeks-A1c was 5.5 Follow-up with Dr. Wilson to arrange for colonoscopy in 6 to 8 weeks Please follow-up with Dr. Rizo with general surgery in 1 to 2 weeks Diet: Garvin Activity: Ad rosa elena Followup: Chris Delacruz DO [ACTIVE - CAN ADMIT] - 1-2 Weeks Alphonso Katz MD [Primary Care Provider] - 1 Week Jesu Rizo MD [ACTIVE - CAN ADMIT] - 1 Week Gallo Dougherty MD [ASSOCIATE-ACTIVE - CAN ADMIT] - 1-2 Weeks Time spent managing pt's care (in minutes): 42
== END 2024-04-13 11:22 | disposition home or self-care (01) | DRG 392 ==
LOC: ER 02:01 → 2ND 06:52
PROVIDERS: ADMIT Nurse Practitioner; ATTEND Hospitalist
DX: K57.20 Diverticulitis of large intestine with perforation and abscess without bleeding (principal); N17.9 Acute kidney failure, unspecified; I10 Essential (primary) hypertension; Z96.21 Cochlear implant status
CPT/HCPCS: 36415; 74177; 80053; 80061; 81001; 83036; 83690; 83735; 84100; 85025; 96365; 96375; 99285; J1650; J2270; J2405; J2543; J3475; J7030; Q9967